=== PATIENT | male | born 1955 | race Two or more races ===

== ENCOUNTER 2016-05-28 04:56 | Inpatient (IN) | payer MEDICAID, OTHER ==
--- NOTE | 2016-05-28 05:03 | EDPHY ---
H & P Stated Complaint: stomach pain HPI/ROS: HPI CHIEF COMPLAINT: Abdominal pain HISTORY OF PRESENT ILLNESS: This patient very pleasant 60-year-old male significant past medical history for incarcerated hernia, diverticulitis, ileostomy and ileostomy takedown, appropriate multiple times by Dr. Hernandez, who presents emergency room with diffuse abdominal pain crampy in nature. Patient tells me that he had watermelon last night around 10:00 p.m. he started developing diffuse abdominal pain he has not had a fever. He tells me that he did have Nausea 1 episode of dry heaving no active vomiting. Today the pain has been persisting all night decided to come to the emergency room for evaluation. Tells me is tender all over his abdomen but more so in the lower abdomen. Patient has some me that in our half ago he did have a bowel movement however his discomfort in his abdomen did not improve. This patient is Swazi-speaking only. Almaz TOWNSEND was used as engineering aid. Past Medical History: Diverticulitis Past Surgical History: Multiple abdominal surgeries including diverticulitis surgery, ileostomy, ileostomy reversal, incarcerated hernia Social History: denies daily use of drugs alcohol tobacco products Family History: Noncontributory ROS REVIEW OF SYSTEMS: A comprehensive 10 point review of systems is otherwise negative aside from elements mentioned in the history of present illness. Exam Constitutional triage nursing summary reviewed, vital signs reviewed, awake/ alert. Eyes normal conjunctivae and sclera, EOMI, PERRLA. HENT normal inspection, atraumatic, moist mucus membranes, no epistaxis, neck supple/ no meningismus, no raccoon eyes. Respiratory clear to auscultation bilaterally, normal breath sounds, no respiratory distress, no wheezing. Cardiovascular rate normal, regular rhythm, no murmur, no edema, distal pulses normal. Gastrointestinal soft rather large abdomen, no guarding or peritoneal signs however diffusely tender with worsening tenderness in lower abdomen, hypoactive bowel sounds, no distension, no pulsatile mass. Genitourinary no CVA tenderness. Musculoskeletal no midline vertebral tenderness, full range of motion, no calf swelling, no tenderness of extremities, no meningismus, good pulses, neurovascularly intact. Skin pink, warm, & dry, no rash, skin atraumatic. Neurologic awake, alert and oriented x 3, AAOx3, moves all 4 extremities equally, motor intact, sensory intact, CN II-XII intact, normal cerebellar, normal vision, normal speech. Psychiatric normal mood/affect. Heme/Lymph/Immune no lymphadenopathy. Differential diagnosis includes but is not limited to and in no particular order: ileus, Bowel obstruction, appendicitis, gallbladder disease, diverticulitis, colitis, enteritis, perforated viscus, gastritis, GERD, esophagitis, urinary tract infection, pyelonephritis, kidney stones Medical Decision Making: This patient had an IV established obtain blood work including lactic acid, patient received IV fluids, be made NPO, hydrated with normal saline, IV Dilaudid for pain control IV Zofran for nausea patient had a CT scan abdomen pelvis to rule out acute intra-abdominal pathology. Does have a history of hernia with multiple intra-abdominal surgeries most likely scar tissue will rule out bowel obstruction, hernia, acute intra-abdominal inflammation Re-evaluation: CT scan of the abdomen pelvis with IV contrast. The results of the study are this shows a small bowel obstruction this small-bowel obstruction is located in the right lower quadrant is slightly distal to the small bowel anastomosis suture sites transition point present. The study was read by Dr. Lynn I viewed the images myself on the PACS system. 0628: Spoke with Dr. Hernandez who will come and see and evaluate the patient. At this time this patient is hemodynamically stable no acute distress. I have updated him that he has an SBO. Patient be admitted to the medical- surgical service. I consulted Dr. Hernandez. Source: Patient - Personal History Current Tetanus/Diphtheria Vaccine: Unsure - Medical/Surgical History Hx Asthma: No Hx Chronic Respiratory Disease: No Hx Diabetes: No Hx Cardiac Disease: No Hx Renal Disease: No Hx Cirrhosis: No Hx Alcoholism: No Hx HIV/AIDS: No Hx Splenectomy or Spleen Trauma: No Other PMH: PMHx: denies. PSHx: appy / diverticulitis. COLOSTOMY, colostomy reversal 2 wks ago - Social History Smoking Status: Former smoker Constitutional: Initial Vital Signs Temperature (C) 36.7 C 05/28/16 04:58 Heart Rate 90 05/28/16 04:58 Respiratory Rate 05/28/16 04:58 Blood Pressure 144/90 H 05/28/16 04:58 O2 Sat (%) 93 05/28/16 04:58 O2 Delivery Mode Nasal Cannula O2 (L/minute) 1.5 Allergies/Adverse Reactions: No Known Drug Allergies Allergy (Verified 09/16/14 10:23) Home Medications: Medication Instructions Recorded Ibuprofen [Motrin (*)] 200 mg PO PRN PRN 05/28/16 Medical Decision Making - Data Points Laboratory Results: Laboratory Results 05/29/16 04:23 05/29/16 04:23 Medications Given: Discontinued Medications Hydromorphone HCl (Dilaudid) 0.5 mg IVP EDNOW ONE Stop: 05/28/16 05:07 Last Admin: 05/28/16 05:15 Dose: 0.5 mg Hydromorphone HCl (Dilaudid) 0.5 mg IVP EDNOW ONE Stop: 05/28/16 07:02 Last Admin: 05/28/16 07:06 Dose: 0.5 mg Sodium Chloride (Ns) 1,000 mls @ 0 mls/hr IV ONCE ONE PRN Reason: Wide Open Stop: 05/28/16 05:07 Last Admin: 05/28/16 05:20 Dose: 1,000 mls Influenza Virus Vaccine Quadrival (Fluarix Quad [id number] Syringe) 0.5 ml IM .ONCE ONE Stop: 05/29/16 16:01 Last Admin: 05/29/16 16:04 Dose: 0.5 ml Ondansetron HCl (Zofran) 4 mg IVP EDNOW ONE Stop: 05/28/16 05:07 Last Admin: 05/28/16 05:21 Dose: 4 mg Departure - Departure Disposition: [facility] Inpatient Acute Clinical Impression: Small bowel obstruction Condition: Fair
[2016-05-28] MEDS ORDERED: HYDROmorphONE/DILAUDID 1 MG/ML SYR IVP ONE ×2 (05:06→07:01)
[2016-05-28] MEDS ORDERED: NS 1,000 ML IV ONE (05:06)
[2016-05-28] MEDS ORDERED: ONDANSETRON 4 MG/2 ML VIAL IVP ONE (05:06)
[2016-05-28 05:23] LABS: % IMMATURE GRANULYOCYTES 0.3 % (0.0-1.1); ABSOLUTE IMMATURE GRANULOCYTES 0.02 10^3/uL (0.00-0.10); ADD DIFF? NO; ADD MORPH? NO; ADD SCAN? NO; ATYPICAL LYMPHOCYTE FLAG 0 (0-99); FRAGMENT RBC FLAG 0 (0-99); HEMATOCRIT 46.1 % (40.0-51.0); HEMOGLOBIN 16.6 g/dL (13.7-17.5); LEFT SHIFT FLG 0 (0-99); LIPEMIA HEMOLYSIS FLAG 90 (0-99); MEAN CELL HEMOGLOBIN 35.5 pg (27.9-34.1); MEAN CELL VOLUME 98.5 fL (81.5-99.8); MEAN PLATELET VOLUME 10.6 fL (8.7-11.7); PLATELET CLUMPS FLAG 0 (0-99); PLATELET COUNT 109 10^3/uL (150-400); RED BLOOD CELL COUNT 4.68 10^6/uL (4.40-6.38); RED CELL DISTRIBUTION WIDTH 12.9 % (11.5-15.2)
[2016-05-28 05:37] LABS: ALANINE AMINOTRANSFERASE 107 IU/L (21-72); ALKALINE PHOSPHATASE 216 IU/L (38-126); ANION GAP 10 mEq/L (8-16); ASPARTATE AMINOTRANSFERASE 112 IU/L (17-59); BILIRUBIN,TOTAL 1.6 mg/dL (0.1-1.4); BILIRUBIN-CONJUGATED 0.5 mg/dL (0.0-0.5); BILIRUBIN-UNCONJUGATED 1.1 mg/dL (0.0-1.1); CALCIUM 9.1 mg/dL (8.5-10.4); CARBON DIOXIDE 24 mEq/l (22-31); CHLORIDE 107 mEq/L (97-110); CREATININE 0.6 mg/dL (0.7-1.3); GLOMERULAR FILTRATION RATE > 60; GLUCOSE 122 mg/dL (70-100); POTASSIUM 4.1 mEq/L (3.5-5.2); SODIUM 141 mEq/L (134-144); TOTAL PROTEIN 8.4 g/dL (6.3-8.2)
[2016-05-28] MEDS ORDERED: IOPAMIDOL (ISOVUE-300) 50 ML VIAL IV ONE (05:38)
[2016-05-28 05:40] LABS: INR 1.1 (0.83-1.16); PROTIME(PATIENT) 14.1 SEC (12.0-15.0)
[2016-05-28 05:41] LABS: APTT 33.9 SEC (23.0-38.0)
[2016-05-28] MEDS ORDERED: PROMETHAZINE HCL 25 MG/ML VIAL IVP PRN (06:31)
[2016-05-28] MEDS ORDERED: CEPACOL LOZENGE PO PRN (06:38)
[2016-05-28] MEDS: D5W 1/2 NS W/ 20 KCl/L 1,000 ML IV SCH ×2 (07:59→17:38)
[2016-05-28] MEDS: ONDANSETRON 4 MG/2 ML VIAL IVP PRN ×3 (08:09→19:33)
--- NOTE | 2016-05-28 09:12 | US ---
Right Upper Quadrant Sonogram May 28, 2016 Indication: 60-year-old man with abdominal pain, nausea, vomiting, and elevated LFTs. Comparison: CT abdomen and pelvis performed earlier today. Findings: The study is limited by large body habitus and gaseous bowel pattern partially obscuring th e intra-abdominal anatomy. The normal size liver, measuring 16.9 cm in the midaxillary line, has minimal increased echogenicity and heterogeneous echotexture. No sonographic mass or biliary dilation. The liver capsule has mild sc alloping. The gallbladder contains internal echoes which likely represent viscous bile and sludge. No shadowing gallstones. No sonographic Avendaño sign or pericholecystic fluid. The common bile duct is largely obs cured by bowel gas. The limited visualized segment has normal caliber (2 to 3 mm). Portal vein is patent. The abdominal aorta is normal caliber. The right kidney is unremarkable. No hydronephrosis. The right kidney measures 12.1 cm in length x 5. 5 x 5.8 cm axially. Cortical thickness: 1.2 cm. No free fluid. Majority of the pancreas is obscured by bowel gas. Impression: 1. Gallbladder sludge. No cholelithiasis or evidence of biliary obstruction. 2. Suspect underlying chronic liver disease. 3. No ascites.
--- NOTE | 2016-05-28 10:04 | GHP ---
[f rep st] HISTORY AND PHYSICAL DATE OF ADMISSION: 05/28/2016 CHIEF COMPLAINT: Abdominal pain. HISTORY OF PRESENT ILLNESS: The patient is a 60-year-old man who originally had a colovesicular fist john. He had an ileostomy and subsequently ileostomy take down. He then developed a small bowel obst ruction, and this was repaired. He had been doing well since September of 2014 but then had vague abdomina l pain and 1 episode of emesis. He is still passing gas and having bowel movements. He has been eat ing. PAST MEDICAL HISTORY: Diverticulitis. PAST SURGICAL HISTORY: As above. MEDICATIONS: None. He did take baking soda around midnight. 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 He denies tobacco, alcohol or drug use. FAMILY HISTORY: Unchanged. REVIEW OF SYSTEMS: 10-point review of systems negative except per HPI. PHYSICAL EXAMINATION: GENERAL: Well-developed, well-nourished man lying in bed. HEENT: Normocepha lic. No gross hearing deficits. Mucous membranes moist. Pupils equal and round. No scleral icteru s. LUNGS: Clear to auscultation bilaterally. No increased work of breathing. CARDIAC: Regular ra te. No peripheral edema. ABDOMEN: Mildly tender to deep palpation. Bowel sounds are present. He is soft he is tender over the ileostomy takedown site. SKIN: Normal nails. Warm and dry. PSYCH: Mood and affect normal. RESULTS REVIEWED: I personally reviewed the results of his CT scan, and there is possibly a mild par tial small bowel obstruction. His laboratory work reveals a normal white blood cell count. His chem istry panel is normal, but his LFTs are slightly elevated, which is different. His total bilirubin i s 1.6 and conjugated is 0.5. His lipase is 181. IMPRESSION AND PLAN: The patient is a 60-year-old with abdominal pain. I have ordered a right upper quadrant ultrasound which showed sludge without any pericholecystic fluid or biliary ductal dilatati on. His CT scan shows possible obstruction distal to the anastomosis; however, he is passing flatus and having bowel movements. We will admit him, keep him n.p.o., hydrate and look at labs in the morn ing. I will hold off on NG at this time since he is passing flatus and having bowel movements. It i s also possible he could have a viral gastroenteritis. /[id number]/MODL
[2016-05-28 15:02] LABS: COLOR YELLOW; LEUKOCYTE ESTERASE,URINE NEGATIVE (NEGATIVE); NITRITE,URINE NEGATIVE (NEGATIVE)
--- NOTE | 2016-05-28 17:43 | CT ---
CT Scan of the Abdomen and Pelvis (With Contrast) 0609 hours History: Worsening lower abdominal pain. Previous history of diverticulitis, colostomy, and colost grady reversal with partial colon resection. Technique: Axial computed tomographic images of the abdomen and pelvis were obtained with the unevent ful intravenous administration of 98 mL Isovue-300 contrast. Images were reviewed in multiple planes. Dose reduction techniques were utilized. Comparison to prior CT study of September 04, 2014. CT Abdomen and Pelvis Findings: Bowel: There is mild to moderate distention of distal small bowel loops within the lower abdomen and mid to upper pelvis. Bowel anastomotic sutures are seen involving distal small bowel in the right upp er iliac fossa. Just distal to this anastomosis there is point of transition between dilated and deco mpressed small bowel about 10 cm proximal to the terminal ileum. The remaining small bowel loops are normal in appearance. Lung bases: Normal. Liver: There is lobulated contour to the liver without evidence of focal mass. Rule out underlying ci rrhosis. Spleen: Normal. Gallbladder and Bile Ducts: The gallbladder is mildly distended. There is no evidence of calcified g allstone. The degree of distention is less than on the prior study. There is no evidence of biliary d uctal dilatation. Pancreas: Normal. Adrenals: Normal. Kidneys: No obstruction or solid masses. Abdominal Aorta: No aneurysm. Pelvic structures: The prostate is enlarged measuring 6.7 x 6.6 x 8.1 cm longitudinal, AP, and transv erse dimensions. There is moderate diffuse thickening of the bladder wall without focal abnormality. The bladder is decompressed. Appendix: Previous appendectomy. Skeletal system: Vertebral body heights are well-maintained. There are no significant lytic or scler otic osseous lesions. Degenerative disk disease is present from T12-L1 through L4-L5 with associated disk bulges and marginal calcifications contributing to spinal stenosis. Impression: 1. Mild to moderate partial SBO involving distal ileum about 10 cm proximal to the terminal ileum jus t distal to some bowel anastomotic sutures. 2. Lobulated contour to the liver suggestive of mild cirrhosis. 3. Enlarged prostate with thickened bladder wall probably from bladder outlet obstruction. 4. Degenerative disk disease involving the lumbar spine with associated marginal osteophytes and unde rlying spinal stenoses. The study was performed as an emergency on-call case and discussed by telephone with Dr. Zeferino chaidez at 0622 hrs. The final interpretation is concordant with the original communication.
[2016-05-29 05:53] LABS: % IMMATURE GRANULYOCYTES 0.2 % (0.0-1.1); ABSOLUTE IMMATURE GRANULOCYTES 0.01 10^3/uL (0.00-0.10); ADD DIFF? NO; ADD MORPH? NO; ADD SCAN? NO; ATYPICAL LYMPHOCYTE FLAG 10 (0-99); FRAGMENT RBC FLAG 0 (0-99); HEMATOCRIT 44.1 % (40.0-51.0); HEMOGLOBIN 15.1 g/dL (13.7-17.5); LEFT SHIFT FLG 20 (0-99); LIPEMIA HEMOLYSIS FLAG 90 (0-99); MEAN CELL HEMOGLOBIN 34.7 pg (27.9-34.1); MEAN CELL HEMOGLOBIN CONCENTR. 34.2 g/dL (32.4-36.7); MEAN CELL VOLUME 101.4 fL (81.5-99.8); MEAN PLATELET VOLUME 11.3 fL (8.7-11.7); PLATELET CLUMPS FLAG 0 (0-99); PLATELET COUNT 97 10^3/uL (150-400); RED BLOOD CELL COUNT 4.35 10^6/uL (4.40-6.38); RED CELL DISTRIBUTION WIDTH 12.8 % (11.5-15.2)
[2016-05-29 06:18] LABS: ALANINE AMINOTRANSFERASE 83 IU/L (21-72); ALBUMIN 3.2 g/dL (3.5-5.0); ALKALINE PHOSPHATASE 144 IU/L (38-126); ANION GAP 11 mEq/L (8-16); ASPARTATE AMINOTRANSFERASE 81 IU/L (17-59); BILIRUBIN,TOTAL 1.4 mg/dL (0.1-1.4); BILIRUBIN-CONJUGATED 0.3 mg/dL (0.0-0.5); BILIRUBIN-UNCONJUGATED 1.1 mg/dL (0.0-1.1); CALCIUM 8.2 mg/dL (8.5-10.4); CARBON DIOXIDE 23 mEq/l (22-31); CHLORIDE 107 mEq/L (97-110); CREATININE 0.6 mg/dL (0.7-1.3); GLOMERULAR FILTRATION RATE > 60; GLUCOSE 84 mg/dL (70-100); SODIUM 141 mEq/L (134-144); TOTAL PROTEIN 7.2 g/dL (6.3-8.2)
[2016-05-29] MEDS: D5W 1/2 NS W/ 20 KCl/L 1,000 ML IV SCH ×2 (07:25→18:09)
[2016-05-29] MEDS ORDERED: HYDROmorphONE/DILAUDID 1 MG/ML SYR IVP PRN (07:51)
[2016-05-29] MEDS: ONDANSETRON 4 MG/2 ML VIAL IVP PRN (08:15)
--- NOTE | 2016-05-29 08:46 | DX ---
Two-view abdomen series 0818 hours. History: Vomiting. Evaluate for obstruction. Findings: Comparison to CT study of May 28, 2016. Mildly dilated loops of small bowel are seen within the midabdomen with air-fluid levels compatible w ith persistent mild SBO. There is gas present within large bowel loops. Surgical clips are noted with in the abdomen and pelvis. There are no abnormal calcifications. Degenerative changes are noted assoc iated with the lumbar spine along with sclerosis inferior right SI joint. Impression: 1. Mild dilatation of small bowel loops midabdomen compatible with mild partial SBO, probably stable.
--- NOTE | 2016-05-29 09:24 | SOAPPROG ---
SOAP Progress Note Assessment/Plan: Assessment: HD # 2 for abdominal pain Small amount of emesis yesterday AXR stable Reports ate 1lb melon on Monday Keep NPO S: Pain is a 4 Plan: 05/29/16 09:23 Objective: Vital Signs Temp Pulse Resp BP Pulse Ox 36.6 C 66 18 128/66 H 94 05/29/16 08:10 05/29/16 08:10 05/29/16 08:10 05/29/16 08:10 05/29/16 08:10 Laboratory Results 05/29/16 04:23 05/29/16 04:23 05/28/16 05/29/16 05/30/16 05:59 05:59 05:59 Intake Total 2000 Output Total 400 200 Balance 1600 -200 PT 14.1 SEC (12.0-15.0) 05/28/16 04:30 INR 1.10 (0.83-1.16) 05/28/16 04:30 Physical Exam - Physical Exam General Appearance: WD/WN, alert, no apparent distress EENT: normal ENT inspection Neck: full range of motion Respiratory: chest non-tender, lungs clear, normal breath sounds Cardiac/Chest: regular rate, rhythm, No edema Abdomen: normal bowel sounds, non-tender (mild tender to deep palpation in B lower quadrants), soft Male Genitalia: deferred Skin: warm/dry ICD10 Worksheet Patient Problems: Problems Problem Status Diagnosed Small bowel obstruction Acute Diverticular disease of both small and large intestine with perforation and abscess Acute
[2016-05-29] MEDS ORDERED: FLU VACC QS 2016-17(3-64YR)/PF 0.5 ML SYR (FLUARIX QUAD) IM ONE ×2 (10:12→16:00)
[2016-05-29] MEDS: KETOROLAC 15 MG/1 ML SDV IVP SCH ×3 (13:12→23:26)
[2016-05-30] MEDS: D5W 1/2 NS W/ 20 KCl/L 1,000 ML IV SCH ×2 (04:43→16:36)
[2016-05-30] MEDS: KETOROLAC 15 MG/1 ML SDV IVP SCH ×4 (06:04→23:39)
--- NOTE | 2016-05-30 09:30 | SOAPPROG ---
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 Still with abdominal pain but improved. Reports passing flatus and BM x 3 this morning Advance to clear liquids. S: reports pain is a 4 now, but improving. passing flatus. no nausea, no vomiting. O: laying in bed, comfortable, NAD CTAB, no increased wob RRR +BS throughout, distended but soft, mild ttp periumbilical and lower quadrants Objective: Vital Signs Temp Pulse Resp BP Pulse Ox 36.7 C 57 L 14 111/69 94 05/30/16 07:49 05/30/16 07:49 05/30/16 07:49 05/30/16 07:49 05/30/16 07:49 05/29/16 05/30/16 05/31/16 05:59 05:59 05:59 Intake Total 1200 Output Total 100 Balance 1100 PT 14.1 SEC (12.0-15.0) 05/28/16 04:30 INR 1.10 (0.83-1.16) 05/28/16 04:30 ICD10 Worksheet Patient Problems: Problems Problem Status Diagnosed Small bowel obstruction Acute Diverticular disease of both small and large intestine with perforation and abscess Acute
[2016-05-30] MEDS: SENNOSIDES/DOCUSATE SODIUM TAB PO SCH (20:15)
[2016-05-31] MEDS: D5W 1/2 NS W/ 20 KCl/L 1,000 ML IV SCH (02:52)
[2016-05-31] MEDS: KETOROLAC 15 MG/1 ML SDV IVP SCH (05:06)
[2016-05-31 08:05] VITALS: BP 131/60; PULSE 59; RESP 16; TEMP 98.1; O2SAT 95
--- NOTE | 2016-05-31 08:26 | SOAPPROG ---
SOAP Progress Note Assessment/Plan: Assessment: 60yo M with history of colovesicular fistula admitted with abdominal pain, HD #4 No nausea, no vomiting. Abdominal pain improved + flatus and BM Tolerating clear liquids - advance to regular diet Seen with Dr. Hernandez D/c home today. follow-up at [facility]. follow-up with dr. Hernandez PRN. low fiber diet x 2 weeks S: feeling better. passing flatus. no nausea, no vomiting. O: laying in bed, comfortable, NAD no increased wob +BS throughout, nondistended, soft, nontender Objective: Vital Signs Temp Pulse Resp BP Pulse Ox 36.7 C 59 L 16 131/60 H 95 05/31/16 08:00 05/31/16 08:00 05/31/16 08:00 05/31/16 08:00 05/31/16 08:00 05/30/16 05/31/16 06/01/16 05:59 05:59 05:59 Intake Total 1200 3200 Output Total 100 Balance 1100 3200 PT 14.1 SEC (12.0-15.0) 05/28/16 04:30 INR 1.10 (0.83-1.16) 05/28/16 04:30 ICD10 Worksheet Patient Problems: Problems Problem Status Diagnosed Small bowel obstruction Acute Diverticular disease of both small and large intestine with perforation and abscess Acute
[2016-05-31] MEDS: SENNOSIDES/DOCUSATE SODIUM TAB PO SCH (09:17)
== END 2016-05-31 12:10 | disposition home or self-care (01) | DRG 390 ==
LOC: INTOOBSV 06:29 → F3E 07:29 → OBSVTOIN 05-29 09:23
PROVIDERS: ADMIT Surgery; ATTEND Surgery
DX: K56.60 Unspecified intestinal obstruction (principal); Z23 Encounter for immunization; Z87.891 Personal history of nicotine dependence
CPT/HCPCS: 96374; G0008; G0378; J1170; J1885; J2405; Q9967

== ENCOUNTER 2016-06-10 14:56 | Emergency (ER) | payer MEDICAID ==
[2016-06-10] MEDS ORDERED: IBUPROFEN 600 MG TAB PO ONE (15:06)
--- NOTE | 2016-06-10 15:07 | EDPHY ---
H & P Stated Complaint: fell off 2 ft ladder /injured r shoulder and arm Time Seen by Provider: 06/10/16 15:06 - Personal History Current Tetanus/Diphtheria Vaccine: Yes - Medical/Surgical History Hx Asthma: No Hx Chronic Respiratory Disease: No Hx Diabetes: No Hx Cardiac Disease: No Hx Renal Disease: No Hx Cirrhosis: No Hx Alcoholism: No Hx HIV/AIDS: No Hx Splenectomy or Spleen Trauma: No Other PMH: PMHx: denies. PSHx: appy / diverticulitis. COLOSTOMY, colostomy reversal 2 wks ago - Social History Smoking Status: Former smoker Constitutional: Initial Vital Signs Temperature (C) 36.6 C 06/10/16 14:58 Heart Rate 59 L 06/10/16 14:58 Respiratory Rate 16 06/10/16 14:58 Blood Pressure 153/77 H 06/10/16 14:58 O2 Sat (%) 95 06/10/16 14:58 O2 Delivery Mode [Post Non-Rebreather Mask Procedure 1st] O2 Delivery Mode [Procedural Non-Rebreather Mask 1st] O2 Delivery Mode [.Immediate Non-Rebreather Mask Pre-Procedure Procedural 1st] O2 Delivery Mode Room Air O2 (L/minute) [Post Procedure 10 1st] O2 (L/minute) [Procedural 1st] 10 Allergies/Adverse Reactions: No Known Drug Allergies Allergy (Verified 06/10/16 14:58) Home Medications: Medication Instructions Recorded Ibuprofen [Motrin (*)] 200 mg PO PRN PRN 05/28/16 HYDROcodone/APAP 10/325 [[place] 1 - 2 each PO Q4-6PRN PRN #20 tab 06/10/16 10/325] Medical Decision Making ED Course/Re-evaluation: CHIEF COMPLAINT: Right shoulder pain HISTORY OF PRESENT ILLNESS: The patient is a Niuean-speaking 60 y/o male arriving with his friend complaining of right shoulder pain secondary to a fall while painting 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 He fell off a 2ft ladder directly onto his right shoulder and had immediate pain in the shoulder. He denies weakness or paresthesias or other injuries. His hand, wrist, and forearm were uninjured. He denies pertinent medical history. His friend at bedside translated for me. REVIEW OF SYSTEMS: A 10 point review of systems was performed and is negative with the exception of the elements mentioned in the history of present illness. PHYSICAL EXAM: HR, BP, O2 Sat, RR. Temp noted General Appearance: Alert, well hydrated, obese. appropriate, and non-toxic appearing. Head: Atraumatic without scalp tenderness or obvious injury Eyes: Pupils equal, round, reactive to light and accommodation, EOMI, no trauma , no injection. Ears: Clear bilaterally, no perforation, normal landmarks Nose: Atraumatic, no rhinorrhea, clear. Throat: There is no erythema or exudates, no lesions, normal tonsils, mucus membranes moist. Neck: Supple, 2+ carotid upstroke, nontender, no lymphadenopathy. Respiratory: No retractions, no distress, no wheezes, and no accessory muscle use. Lungs are clear to auscultation bilaterally. Cardiovascular: Regular rate and rhythm, no murmurs, rubs, or gallops. Bilateral carotid, radial, dorsalis pedis, and posterior tibial pulses intact. Good capillary refill all extremities. Gastrointestinal: Abdomen is soft, nontender, non-distended, no masses, no rebound, no guarding, no peritoneal signs. Musculoskeletal: Right shoulder tenderness and pain with ROM, likely dislocated. Otherwise normal active ROM of all extremities, atraumatic. Neurological: Alert, appropriate, and interactive. The patient has normal DTRs and non-focal cranial nerves, motor, sensory, and cerebellar exam. Skin: No rashes, good turgor, no nodules on palpation. Past medical history: Bowel obstruction, unclear if he received surgery Past surgical history: noncontributory Family history: noncontributory Social history: Niuean-speaking DIAGNOSTICS/PROCEDURES/CRITICAL CARE TIME: Study: Right shoulder x-ray Indication: Pain, trauma Results: Shoulder x-ray was obtained. The results of the study are anterior- inferior dislocation. Radiologist report pending. I viewed the images myself on the PACS system. Procedure: Conscious sedation. Indication: Shoulder reduction The patient is an appropriate candidate to tolerate procedural sedation. The patient's vitals signs and mental status are appropriate. The risks, benefits and alternatives of the sedation were discussed with the patient. The patient is ASA classification 2. The patient's Mallampati airway score was 2 and the patient did meet the 3-3-2 airway measurements. A time out was completed. The patient was sedated with 1mg IV Dilaudid and 100mg IV propofol. The patient was monitored with continuous pulse oximetry, awake overnight monitor and end tidal CO2. There were no complications and no significant hypoxemia. I performed both the sedation and the procedure. The total time I spent at the bedside during the procedural sedation was 15 minutes. The patient was examined after the procedural sedation and has returned to their pre-sedation baseline with normal vital signs and a normal examination. Procedure: Reduction of dislocated shoulder Time-out completed immediately before the procedure. IV established. O2 administered. Placed on pulse oximeter and [id number]. Neurovascular exam intact pre-procedure. Given 1mg IV Dilaudid for pain and 100mg IV Propofol for sedation. The right shoulder was reduced using traction-countertraction.] Reassessed post-procedure. Neurovascular status intact- normal median, radial, ulnar and axillary nerve motor and sensory exam. Exam indicated reduction. Confirmed reduction on X-ray. Arm sling applied. The procedure was performed by myself, Dr. Bond Study: Right shoulder x-ray Indication: post reduction Results: Shoulder x-ray was obtained. The results of the study are appropriate reduction. Radiologist report pending. I viewed the images myself on the PACS system. DIFFERENTIAL DIAGNOSIS: The differential diagnosis for the patient's trauma included but was not limited to shoulder dislocation, humerus fracture, clavicle fracture, pneumothorax, fractured ribs, intracranial injury, long bone and pelvic bone fractures, spinal injury, intra-abdominal injury, and intra- thoracic injury. MEDICAL DECISION MAKING: This is a 60 y/o male presenting with right shoulder pain and likely dislocation following a 2-foot fall this afternoon while painting. He has no other visible injuries from the fall. He is neurovascularly intact on exam. ROM of right shoulder limited by pain. Plan for pain control and x-ray imaging. 2 tabs PO Percocet administered. X-ray confirms anteriorly dislocated right shoulder. Plan for conscious sedation and reduction. I discussed this with the patient via nursing tech and answered all his questions. IV established. Shoulder successfully reduced as confirmed by x-ray. Patient tolerated procedure well. He will be discharged with customary shoulder dislocation care instructions and script for [place]. He's been referred to ortho for follow up. These instructions were clearly conveyed to him via nursing tech. Patient agrees to follow up plan. - Data Points Medications Given: Discontinued Medications Hydromorphone HCl (Dilaudid) 1 mg IVP EDNOW ONE Stop: 06/10/16 15:51 Last Admin: 06/10/16 15:50 Dose: 1 mg Ibuprofen (Motrin) 600 mg PO EDNOW ONE Stop: 06/10/16 15:07 Last Admin: 06/10/16 15:13 Dose: 600 mg Oxycodone/Acetaminophen (Percocet 5/325) 2 tab PO EDNOW ONE Stop: 06/10/16 15:10 Last Admin: 06/10/16 15:13 Dose: 2 tab Propofol (Diprivan) 100 mg IVP EDNOW ONE Stop: 06/10/16 15:53 Last Admin: 06/10/16 16:09 Dose: 100 mg Departure - Departure Disposition: Home, Routine, Self-Care Clinical Impression: Dislocation of shoulder, right, closed Condition: Good Instructions: Shoulder Dislocation (ED) Additional Instructions: 1. Rest. Apply ice to sore areas. Use 600mg ibuprofen 3 times daily for the next 2-3 days. 2. Use [place] as prescribed when needed for pain. 3. Keep arm in sling until follow up. 4. Follow up with Dr. Marrero, orthopedic surgeon, next week. 5. Return to the ED for severe pain, inability to use your hand, or numbness in your hand. Referrals: Tereso Marrero MD [Medical Doctor] - As per Instructions Prescriptions: HYDROcodone/APAP 10/325 [[place] 10/325] 1 - 2 each PO Q4-6PRN PRN #20 tab PRN Reason: Pain, Moderate Print Language: Niuean Report Scribed for: Brad Bond Report Scribed by: Asmita Smalls Date of Report: 06/10/16 Time of Report: 15:45
[2016-06-10] MEDS ORDERED: OXYCODONE/APAP 5/325 TAB PO ONE (15:09)
[2016-06-10] MEDS ORDERED: OXYCODONE/APAP 5/325 TAB ONE (15:10)
--- NOTE | 2016-06-10 15:34 | DX ---
Right Shoulder, Two Views. HISTORY: Pain after fall. FINDINGS: There is anterior dislocation of the right humerus at the anterior inferior aspect of the r ight glenoid. Acromioclavicular joint demonstrates mild degenerative change. No other significant oss eous abnormality. IMPRESSION: Anterior dislocation of the right glenohumeral joint.
[2016-06-10] MEDS ORDERED: PROPOFOL 200 MG/20 ML VIAL ONE (15:41)
[2016-06-10] MEDS ORDERED: NS 1,000 ML IV ONE (15:50)
[2016-06-10] MEDS ORDERED: HYDROmorphONE/DILAUDID 1 MG/ML SYR IVP ONE (15:50)
[2016-06-10] MEDS ORDERED: HYDROmorphONE/DILAUDID 1 MG/ML SYR ONE (15:50)
[2016-06-10] MEDS ORDERED: PROPOFOL 200 MG/20 ML VIAL IVP ONE (15:52)
--- NOTE | 2016-06-10 16:37 | DX ---
Right Shoulder, Two Views. HISTORY: Shoulder pain. Postreduction evaluation. COMPARISON: X-ray performed earlier today. FINDINGS: There has been reduction of the prior visualized anterior dislocation of the right glenohum eral joint. Definite fracture is not visualized. Mild degenerative change is seen in the acromioclavi cular joint. IMPRESSION: Reduction of the prior visualized anterior dislocation at the glenohumeral joint.
[2016-06-10 17:28] VITALS: RESP 18
[2016-06-10 17:32] VITALS: BP 180/91; PULSE 74; TEMP 97.7; O2SAT 93
== END 2016-06-10 17:34 | disposition home or self-care (01) ==
DX: S43.004A Unspecified dislocation of right shoulder joint, initial encounter (principal); Z87.891 Personal history of nicotine dependence; W11.XXXA Fall on and from ladder, initial encounter; Y92.009 Unspecified place in unspecified non-institutional (private) residence as the place of occurrence of the external cause; Y99.8 Other external cause status; Y93.89 Activity, other specified
CPT/HCPCS: 96374; J1170; J2704; L3980

== ENCOUNTER 2016-06-22 18:25 | Emergency (ER) | payer MEDICAID, OTHER ==
--- NOTE | 2016-06-22 22:19 | EDPHY ---
H & P Time Seen by Provider: 06/22/16 21:48 HPI/ROS: CHIEF COMPLAINT: right shoulder pain HISTORY OF PRESENT ILLNESS: 60-year-old male presents to the emergency department complaining of right shoulder pain the increased today several hours prior to arrival while driving. Patient was seen in the emergency department 11 days ago after he fell off a ladder. He had a shoulder dislocation it was reduced with sedation. Patient saw Dr. Marrero 2 days ago. He gave him gentle [id number] exercises to do and told him to follow up in 2 weeks in the office at that time he will start him with physical therapy. Patient denies new trauma, he reports the pain radiates down his biceps. He describes as a burning sensation. He denies neck pain, no neck elbow pain or wrist pain. No numbness or tingling in his hand. No chest pain or shortness of breath. Smoking Status: Former smoker Physical Exam: GEN: Awake, alert, oriented, no acute distress RESP: nl resp effort MSK: Right shoulder with no tenderness to palpation, range of motion not tested. Patient able to shrug shoulder without difficulty, no deformity, full range of motion of right elbow and right wrist, 2+ radial pulses, sensation intact to light touch SKIN: Ecchymosis to right upper arm Constitutional: Initial Vital Signs Temperature (C) 36.6 C 06/22/16 18:50 Heart Rate 63 06/22/16 18:50 Respiratory Rate 18 06/22/16 18:50 Blood Pressure 125/80 H 06/22/16 18:50 O2 Sat (%) 97 06/22/16 18:50 O2 Delivery Mode Room Air Allergies/Adverse Reactions: No Known Drug Allergies Allergy (Verified 06/22/16 18:57) Home Medications: Medication Instructions Recorded Ibuprofen [Motrin (*)] 200 mg PO PRN PRN 05/28/16 HYDROcodone/APAP 10/325 [[place] 1 - 2 each PO Q4-6PRN PRN #20 tab 06/10/16 10/325] Hydrocodone/APAP 5/325 [[place] 1 tab PO Q4H PRN #14 tab 06/22/16 5/325] MDM/Departure - MDM ED Course/Re-evaluation: The patient had no new trauma to his right arm, I did not order an x-ray, he has no deformity and I do not think his shoulder is dislocated. He has rotator cuff tendinitis pain that radiates down his deltoid. I recommended ice, ibuprofen and [place]. He has a follow-up appointment scheduled already with his orthopedist. He is given return precautions for pain that is not controlled, any new symptoms or concerns. Any neurovascular compromise. - Depart Disposition: Home, Routine, Self-Care Clinical Impression: Sprain of right shoulder Qualifiers: Encounter type: initial encounter Shoulder sprain type: unspecified sprain Qualifier Code: (S43.401A) Unspecified sprain of right shoulder joint, initial encounter Condition: Good Instructions: Hydrocodone/Acetaminophen (By mouth), Shoulder Sprain (ED) Additional Instructions: Rest, ice, take 600 mg of ibuprofen every 8 hours with food, take 1-2 [place] every 4-6 hours as needed for severe pain. Follow-up with Dr. Marrero as scheduled. Return to the emergency department for any questions or concerns. julieth Stout, tome 600 mg de ibuprofeno cada 8 horas con comida, tome 1-2 Jefferson cada 4-6 horas a linnea lo necesite para el dolor. Acuda a aguilera josué con el Dr. Marrero. Regrese a la ehsan de emergencia si tiene preguntas o preocupaciones. Prescriptions: Hydrocodone/APAP 5/325 [[place] 5/325] 1 tab PO Q4H PRN #14 tab PRN Reason: Pain, Moderate Referrals: Tereso Marrero MD [Medical Doctor] - As per Instructions Print Language: Syriac
[2016-06-22] MEDS ORDERED: HYDROCOD/APAP 5/325 PREPACK#6 BTL TAKEHOME ONE ×2 (22:28→23:05)
[2016-06-22] MEDS ORDERED: ONDANSETRON 4MG PREPACK#2 BTL TAKEHOME ONE ×2 (22:42→23:05)
[2016-06-22] MEDS ORDERED: ONDANSETRON DISINTEGRATING 4 MG TAB ONE (22:44)
[2016-06-22 23:04] VITALS: BP 144/86; PULSE 82; RESP 17; TEMP 98.6; O2SAT 95
== END 2016-06-22 23:05 | disposition home or self-care (01) ==
DX: S43.401D Unspecified sprain of right shoulder joint, subsequent encounter (principal); Z87.891 Personal history of nicotine dependence; W11.XXXD Fall on and from ladder, subsequent encounter

== ENCOUNTER → 2016-06-29 | Outpatient (CLI) | payer OTHER ==
--- NOTE | 2016-06-29 18:08 | DX ---
Right Shoulder , 3 Views History: Pain post trauma. History of dislocation. 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 Follow-up. Comparison: June 10, 2016 Findings: The humeral head is well rounded and normally located, however the glenohumeral joint newly looks wide raising the possibility of trapped soft tissue within the shoulder joint. No fracture is identified. The AC joint is normally aligned but associated with degenerative change. Impression: No fracture. Wide glenohumeral joint raises the possibility of trapped soft tissue. If cl inically indicated consider shoulder MRI.
== END ==
LOC: FIMAGING 13:00
PROVIDERS: ATTEND Physician Assistant
DX: S43.004A Unspecified dislocation of right shoulder joint, initial encounter (principal); W19.XXXA Unspecified fall, initial encounter; Y93.H9 Activity, other involving exterior property and land maintenance, building and construction

== ENCOUNTER → 2016-07-14 | Outpatient (CLI) | payer OTHER | LOC: FIMAGING 18:27 | PROVIDERS: ATTEND Physician Assistant | DX: S49.91XA Unspecified injury of right shoulder and upper arm, initial encounter (principal) ==

== ENCOUNTER → 2016-08-02 | Outpatient (CLI) | payer OTHER | LOC: FIMAGING 17:38 | DX: M75.121 Complete rotator cuff tear or rupture of right shoulder, not specified as traumatic (principal) ==

== ENCOUNTER 2016-12-31 23:56 | Inpatient (IN) | payer SELFPAY ==
--- NOTE | 2017-01-01 00:13 | EDPHY ---
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 HPI The patient presents with abdominal pains which have been present for the last 2 days, have been intermittent, are diffuse, getting progressively worse. He has had 3 episodes of nonbloody nonbilious emesis today. He has had 2 soft appearing stools. He has not had a fever. He has a history of a small-bowel obstruction in 2015 and had diverticulitis with abscess as well as ileostomy for colovesicular fistula. REVIEW OF SYSTEMS Constitutional: No fever, no chills. Eyes: No discharge. ENT: No sore throat. Cardiovascular: No chest pain, no palpitations. Respiratory: No cough, no shortness of breath. Gastrointestinal: See HPI Genitourinary: No hematuria. Musculoskeletal: No back pain. Skin: No rashes. Neurological: No headache. PMHx: Diverticulitis, history of colovesicular fistula status post ileostomy with takedown, history of small-bowel obstruction Soc Hx: Lives at home PHYSICAL General Appearance: Alert, no distress Eyes: Pupils equal and round no pallor or injection ENT, Mouth: Mucous membranes moist Respiratory: There are no retractions, lungs are clear to auscultation Cardiovascular: Regular rate and rhythm Gastrointestinal: Abdomen is soft with mild diffuse tenderness Neurological: A&O, moves all extremities Skin: Warm and dry, no rashes Musculoskeletal: Neck is supple non tender Extremities: symmetrical, full range of motion Psychiatric: Patient is oriented X 3, there is no agitation Source: Patient Exam Limitations: No limitations - Personal History Current Tetanus/Diphtheria Vaccine: Unsure - Medical/Surgical History Hx Asthma: No Hx Chronic Respiratory Disease: No Hx Diabetes: No Hx Cardiac Disease: No Hx Renal Disease: No Hx Cirrhosis: No Hx Alcoholism: No Hx HIV/AIDS: No Hx Splenectomy or Spleen Trauma: No Other PMH: PMHx: denies. PSHx: appy / diverticulitis. COLOSTOMY, colostomy reversal 2 wks ago - Social History Smoking Status: Former smoker Constitutional: Initial Vital Signs Temperature (C) 36.9 C 01/01/17 00:06 Heart Rate 83 01/01/17 00:06 Respiratory Rate 16 01/01/17 00:06 Blood Pressure 125/76 H 01/01/17 00:06 O2 Sat (%) 94 01/01/17 00:06 O2 Delivery Mode Room Air Allergies/Adverse Reactions: No Known Drug Allergies Allergy (Verified 06/22/16 18:57) Home Medications: Medication Instructions Recorded NK [No Known Home Meds] 01/01/17 Medical Decision Making - Diagnostics Imaging Results: CT abdomen pelvis with IV contrast demonstrates small bowel obstruction, discussed with Dr. Meza of Radiology. Imaging: Discussed imaging studies w/ salary manager Radiologist Differential Diagnosis: This is a 61-year-old male with history of SBO and colostomy with diverticulitis who presents from home with 2 days of progressive diffuse abdominal pain associated with vomiting. Differential diagnosis includes small bowel obstruction, partial small bowel obstruction, diverticulitis, gastroenteritis. In the emergency department, patient was given IV fluids and medication for pain and vomiting. Labs were checked and did reveal a transaminitis. CT scan demonstrates small bowel obstruction. I consulted with Dr. Hilliard of General surgery, who has taking care of the patient previously, given the diagnostic uncertainty due to recent bowel movements just 2 hours ago, she recommends admission to the hospitalist service. She saw the patient in the emergency department. I discussed the case with Dr. Rodgers of the hospitalist service who will admit the patient. - Data Points Laboratory Results: Laboratory Results 01/01/17 00:25 01/01/17 00:25 01/01/17 01/01/17 01/01/17 00:25 00:25 00:25 WBC RBC Hgb Hct MCV MCH MCHC RDW Plt Count MPV Neut % (Auto) Lymph % (Auto) [place] % (Auto) Eos % (Auto) Baso % (Auto) Nucleat RBC Rel Count Absolute Neuts (auto) Absolute Lymphs (auto) Absolute Monos (auto) Absolute Eos (auto) Absolute Basos (auto) Absolute Nucleated RBC Immature Gran % Immature Gran # PT 13.8 SEC SEC (12.0-15.0) INR 1.07 (0.83-1.16) APTT 33.7 SEC SEC (23.0-38.0) Sodium 139 mEq/L mEq/L (134-144) Potassium 3.7 mEq/L mEq/L (3.5-5.2) Chloride 106 mEq/L mEq/L (97-110) Carbon Dioxide 21 mEq/l L mEq/l (22-31) Anion Gap 12 mEq/L mEq/L (8-16) BUN 7 mg/dL mg/dL (7-23) Creatinine 0.6 mg/dL L mg/dL (0.7-1.3) Estimated GFR > 60 Glucose 122 mg/dL H mg/dL (70-100) Calcium 9.0 mg/dL mg/dL (8.5-10.4) Phosphorus 3.3 mg/dL mg/dL (2.5-4.5) Total Bilirubin 1.4 mg/dL mg/dL (0.1-1.4) Conjugated Bilirubin 0.5 mg/dL mg/dL (0.0-0.5) Unconjugated Bilirubin 0.9 mg/dL mg/dL (0.0-1.1) AST 105 IU/L H IU/L (17-59) ALT 88 IU/L H IU/L (21-72) Alkaline Phosphatase 187 IU/L H IU/L (38-126) Total Protein 8.2 g/dL g/dL (6.3-8.2) Albumin 4.0 g/dL g/dL (3.5-5.0) Lipase 137.0 IU/L IU/L (23-300) 01/01/17 00:25 WBC 6.24 10^3/uL 10^3/uL (3.80-9.50) RBC 4.59 10^6/uL 10^6/uL (4.40-6.38) Hgb 15.9 g/dL g/dL (13.7-17.5) Hct 46.1 % % (40.0-51.0) MCV 100.4 fL H fL (81.5-99.8) MCH 34.6 pg H pg (27.9-34.1) MCHC 34.5 g/dL g/dL (32.4-36.7) RDW 13.5 % % (11.5-15.2) Plt Count 100 10^3/uL L 10^3/uL (150-400) MPV 10.4 fL fL (8.7-11.7) Neut % (Auto) 66.8 % % (39.3-74.2) Lymph % (Auto) 20.7 % % (15.0-45.0) [place] % (Auto) 10.4 % % (4.5-13.0) Eos % (Auto) 1.3 % % (0.6-7.6) Baso % (Auto) 0.5 % % (0.3-1.7) Nucleat RBC Rel Count 0.0 % % (0.0-0.2) Absolute Neuts (auto) 4.17 10^3/uL 10^3/uL (1.70-6.50) Absolute Lymphs (auto) 1.29 10^3/uL 10^3/uL (1.00-3.00) Absolute Monos (auto) 0.65 10^3/uL 10^3/uL (0.30-0.80) Absolute Eos (auto) 0.08 10^3/uL 10^3/uL (0.03-0.40) Absolute Basos (auto) 0.03 10^3/uL 10^3/uL (0.02-0.10) Absolute Nucleated RBC 0.00 10^3/uL 10^3/uL (0-0.01) Immature Gran % 0.3 % % (0.0-1.1) Immature Gran # 0.02 10^3/uL 10^3/uL (0.00-0.10) PT INR APTT Sodium Potassium Chloride Carbon Dioxide Anion Gap BUN Creatinine Estimated GFR Glucose Calcium Phosphorus Total Bilirubin Conjugated Bilirubin Unconjugated Bilirubin AST ALT Alkaline Phosphatase Total Protein Albumin Lipase Medications Given: Ketorolac Tromethamine (Toradol) 15 mg IVP Q6HRS [facility] Stop: 01/06/17 05:59 Last Admin: 01/01/17 05:18 Dose: 15 mg Morphine Sulfate (Morphine) 2 mg IVP Q4HRS PRN PRN Reason: Pain, Severe Unable to Take PO Stop: 01/11/17 02:10 Last Admin: 01/01/17 04:31 Dose: 2 mg Discontinued Medications Sodium Chloride (Ns) 1,000 mls @ 0 mls/hr IV EDNOW ONE; Wide Open PRN Reason: Protocol Stop: 01/01/17 00:21 Last Admin: 01/01/17 00:32 Dose: 1,000 mls Sodium Chloride (Ns) 1,000 mls @ 0 mls/hr IV ONCE ONE; As Directed PRN Reason: Protocol Stop: 01/01/17 02:12 Last Admin: 01/01/17 03:53 Dose: 1,000 mls Ketorolac Tromethamine (Toradol) 15 mg IVP EDNOW ONE Stop: 01/01/17 00:21 Last Admin: 01/01/17 00:33 Dose: 15 mg Morphine Sulfate (Morphine) 4 mg IVP EDNOW ONE Stop: 01/01/17 01:33 Last Admin: 01/01/17 01:38 Dose: 4 mg Ondansetron HCl (Zofran) 4 mg IVP EDNOW ONE Stop: 01/01/17 00:21 Last Admin: 01/01/17 00:33 Dose: 4 mg Departure - Departure Disposition: [facility] Acute Clinical Impression: Abdominal pain Qualifiers: Abdominal location: generalized Qualified Code(s): R10.84 - Generalized abdominal pain Vomiting Qualifiers: Vomiting type: unspecified Vomiting Intractability: non-intractable Nausea presence: with nausea Qualified Code(s): R11.2 - Nausea with vomiting, unspecified Condition: Fair
[2017-01-01] MEDS ORDERED: KETOROLAC 30 MG/1 ML SDV IVP ONE (00:20)
[2017-01-01] MEDS ORDERED: NS 1,000 ML IV ONE ×2 (00:20→02:11)
[2017-01-01] MEDS ORDERED: ONDANSETRON 4 MG/2 ML VIAL IVP ONE (00:20)
[2017-01-01 00:42] LABS: % IMMATURE GRANULYOCYTES 0.3 % (0.0-1.1); ABSOLUTE IMMATURE GRANULOCYTES 0.02 10^3/uL (0.00-0.10); ADD DIFF? NO; ADD MORPH? NO; ADD SCAN? NO; ATYPICAL LYMPHOCYTE FLAG 0 (0-99); FRAGMENT RBC FLAG 0 (0-99); HEMATOCRIT 46.1 % (40.0-51.0); HEMOGLOBIN 15.9 g/dL (13.7-17.5); LEFT SHIFT FLG 0 (0-99); LIPEMIA HEMOLYSIS FLAG 90 (0-99); MEAN CELL HEMOGLOBIN 34.6 pg (27.9-34.1); MEAN CELL HEMOGLOBIN CONCENTR. 34.5 g/dL (32.4-36.7); MEAN CELL VOLUME 100.4 fL (81.5-99.8); MEAN PLATELET VOLUME 10.4 fL (8.7-11.7); PLATELET CLUMPS FLAG 0 (0-99); PLATELET COUNT 100 10^3/uL (150-400); RED BLOOD CELL COUNT 4.59 10^6/uL (4.40-6.38); RED CELL DISTRIBUTION WIDTH 13.5 % (11.5-15.2)
[2017-01-01 00:48] LABS: ALANINE AMINOTRANSFERASE 88 IU/L (21-72); ALKALINE PHOSPHATASE 187 IU/L (38-126); ANION GAP 12 mEq/L (8-16); ASPARTATE AMINOTRANSFERASE 105 IU/L (17-59); BILIRUBIN,TOTAL 1.4 mg/dL (0.1-1.4); BILIRUBIN-CONJUGATED 0.5 mg/dL (0.0-0.5); BILIRUBIN-UNCONJUGATED 0.9 mg/dL (0.0-1.1); CARBON DIOXIDE 21 mEq/l (22-31); CHLORIDE 106 mEq/L (97-110); CREATININE 0.6 mg/dL (0.7-1.3); GLOMERULAR FILTRATION RATE > 60; GLUCOSE 122 mg/dL (70-100); POTASSIUM 3.7 mEq/L (3.5-5.2); SODIUM 139 mEq/L (134-144); TOTAL PROTEIN 8.2 g/dL (6.3-8.2)
[2017-01-01] MEDS ORDERED: IOPAMIDOL (ISOVUE-300) 100 ML BTL ONE (00:55)
[2017-01-01] MEDS ORDERED: ACETAMINOPHEN 325 MG TAB PO PRN (02:10)
[2017-01-01] MEDS ORDERED: ONDANSETRON DISINTEGRATING 4 MG TAB PO PRN (02:10)
[2017-01-01] MEDS ORDERED: ONDANSETRON 4 MG/2 ML VIAL IVP PRN (02:10)
[2017-01-01 03:19] LABS: INR 1.07 (0.83-1.16); PROTIME(PATIENT) 13.8 SEC (12.0-15.0)
[2017-01-01 03:20] LABS: APTT 33.7 SEC (23.0-38.0)
--- NOTE | 2017-01-01 04:31 | GHP ---
[f rep st] HISTORY AND PHYSICAL DATE OF ADMISSION: 01/01/2017 CHIEF COMPLAINT: Nausea and abdominal pain. HPI: a 61-year-old Montserratian-speaking male with a history of multiple abdominal surgeries and prior SBO in May 2016, presenting with epigastric pain, nausea and vomiting. History obtained with phone nutrition assistant. He complains of abdominal pain since burning in nature in the epigastrum and RLQ. It is intermittent and worse after eating. Pain reaches 6/10 at times. Had 3 episodes of nonbloody, non-bilious emesis today. Last BM was today. Has noted some loose stools. Denies any fevers, chills or sweats. No ill contacts. Mild abdominal swelling over the last couple days. No lower extremity swelling. History of sigmoid diverticulitis with abscess in April 2014. Subsequently developed a colovesicular fistula warranting laparotomy with adhesion lysis, bladder repair, sigmoidectomy and diverting ileostomy. In August 2014 he had takedown of the ileostomy. On September 04, 2014 he had a repair of the enterotomy and primary hernia repair. In May 2016 he was hospitalized for small bowel obstruction and was managed conservatively with resolution of symptoms. REVIEW OF SYSTEMS: I completed a 10-point review of systems. PAST MEDICAL HISTORY: 1. Sigmoid diverticulitis with abscess in April 2014. 2. Colovesicular fistula warranting lysis of adhesion, bladder repair, sigmoidectomy and diverting ileostomy. 3. Incarcerated ventral hernia. 4. SBO in May 2016. PAST SURGICAL HISTORY: As noted in HPI. FAMILY HISTORY: Cousin with diabetes. Father with cirrhosis. 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 No tobacco or illicits. MEDICATIONS: None. ALLERGIES: None. PHYSICAL EXAM: VITAL SIGNS: Temperature afebrile, 36.9. Blood pressure 118/59 , heart rate in the 70s, respirations 16 and 94% on room air. GENERAL: Obese male in no acute distress. HEENT: PERRLA. EOMI. Oropharynx clear. CV: Regular rate and rhythm. No murmurs, gallops, rubs. LUNGS: Clear to auscultation bilaterally. ABDOMEN: Soft, mildly distended with mild epigastric and right lower quadrant tenderness to palpation. No rebound or guarding. Hyperactive bowel sounds throughout. MUSCULOSKELETAL: 5/5 upper and lower extremity strength. : No suprapubic tenderness. NEUROLOGIC: 2 through 12 intact. PSYCHIATRIC: Alert and oriented x3. LABS: WBC 6, hemoglobin 15, hematocrit 46, platelets 100. Coags pending. Sodium 139, potassium 3.7, chloride 106, carbon dioxide 21, creatinine 0.6, glucose 122, calcium 9, total bilirubin is 1.4. AST 105, up from 81. ALT is 88 , up from 83. Alkaline phosphatase 187, lipase 137, phos 3.3. CT scan showing recurrent small bowel obstruction right upper pelvis. ASSESSMENT AND PLAN: 1. Acute abdominal pain: differential includes gastroesophageal reflux disease , PUD vs. SBO. CT shows recurrent SBO of right upper pelvis, no abscess. Had emesis today, but is having bowel movements. ER physician discussed with Dr. Hernandez who said to admit to Medicine. Will treat conservatively at this time with n.p.o., IV fluids. Pain is improved with morphine. Electrolytes WNL. If symptoms did not improve may warrant an NG tube. 2. Abdominal distention: likely due to SBO. However, prior U/S in May 2016 showed early signs of chronic liver disease. Has e/o liver dysfunction with thrombocytopenia. Check coags and repeat ultrasound to eval for ascites. 3. Thrombocytopenia: Query underlying cirrhosis. Plan as above. 4. Transaminitis: This has been chronic since May. We will check an ultrasound. 5. Diet, n.p.o. IV fluids. 6. DVT, prophylaxis Lovenox. DISPOSITION: Patient warrants inpatient admission given acute abdominal pain, small bowel obstruction requiring IV fluids and bowel rest. /[id number]/MODL MTDD
[2017-01-01] MEDS ORDERED: KETOROLAC 15 MG/1 ML SDV IVP SCH (06:00)
--- NOTE | 2017-01-01 07:36 | GCON ---
[f rep st] CONSULTATION DATE OF CONSULTATION: 01/01/2017 CHIEF COMPLAINT: Possible small-bowel obstruction. HISTORY OF PRESENT ILLNESS: The patient is a 61-year-old man who initially had a colovesicular fistula that I performed sigmoid colectomy, repair of the bladder with diverting ileostomy and then subsequently took down his ileostomy. I last saw him in May of 2016. He presents to the ER with a 2-day history of eating chicharrones with meat. He has had 2 small episodes of emesis and upper epigastric pain. He last had a bowel movement approximately 2 hours ago which was a bit more soft than usual. He had a CT scan performed in the ER that I personally reviewed that showed some fluid-filled loops of small bowel, read as possible small bowel obstruction. PAST MEDICAL HISTORY: Diverticulitis. PAST SURGICAL HISTORY: As above. MEDICATIONS: None. 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 He denies tobacco, alcohol, illegal drug use. FAMILY HISTORY: Unchanged. REVIEW OF SYSTEMS: Ten-point review of systems negative except per HPI. PHYSICAL EXAMINATION: GENERAL: Well-developed, well-nourished man lying in bed. HEENT: Normocephalic. No gross hearing deficits. Mucous membranes moist. Pupils equal and round. No scleral icterus. LUNGS: Clear to auscultation bilaterally. No increased work of breathing. CARDIAC: Regular rate. No peripheral edema. ABDOMEN: Minimally tender to palpation. Bowel sounds are present. He is soft. SKIN: Normal nails, warm and dry. PSYCH: Mood and affect normal. NEURO: Grossly intact. LABORATORY WORK: Within normal limits with the exception of his elevated LFTs which are consistently elevated. IMPRESSION/PLAN: The patient is a 61-year-old man status post colovesicular fistula with repair and ileostomy takedown who presents with abdominal pain, 2 small episodes of emesis and soft stools, the last stool being even 2 hours ago. I did personally review his CAT scan and there are fluid loops of small bowel; however, they do not appear extremely distended. It is possibly he could have these symptoms in relation to something he recently ate or a virus versus a mechanical small-bowel obstruction. At any rate, he is not completely obstructed. I will continue to follow along. /[id number]/MODL MTDD
[2017-01-01] MEDS: FAMOTIDINE 20 MG/NACL 50 ML IV SCH ×2 (08:23→20:33)
[2017-01-01] MEDS: ENOXAPARIN 40 MG/0.4 ML SYR SC SCH (08:23)
[2017-01-01 09:42] LABS: ANION GAP 8 mEq/L (8-16); CALCIUM 7.9 mg/dL (8.5-10.4); CARBON DIOXIDE 22 mEq/l (22-31); CHLORIDE 110 mEq/L (97-110); CREATININE 0.5 mg/dL (0.7-1.3); GLOMERULAR FILTRATION RATE > 60; GLUCOSE 90 mg/dL (70-100); POTASSIUM 3.6 mEq/L (3.5-5.2); SODIUM 140 mEq/L (134-144)
--- NOTE | 2017-01-01 10:28 | SOAPPROG ---
SOAP Progress Note Assessment/Plan: Assessment: HD # 2 for abdominal pain and small emesis Jose feels better this am. Last BM was at midnight Will follow along, doubt sbo since having bowel movements and pain is improving S: He is eager to know results of ultrasound Plan: 01/01/17 10:25 Objective: Vital Signs Temp Pulse Resp BP Pulse Ox 36.8 C 71 18 143/80 H 94 01/01/17 03:15 01/01/17 03:15 01/01/17 03:15 01/01/17 03:15 01/01/17 03:15 Laboratory Results 01/01/17 09:12 12/31/16 01/01/17 01/02/17 05:59 05:59 05:59 Intake Total 1000 Balance 1000 PT 13.8 SEC (12.0-15.0) 01/01/17 00:25 INR 1.07 (0.83-1.16) 01/01/17 00:25 Physical Exam - Physical Exam General Appearance: WD/WN, alert, no apparent distress EENT: PERRL/EOMI, normal ENT inspection, No scleral icterus (R), No scleral icterus (L), No hearing deficit Respiratory: chest non-tender, lungs clear Cardiac/Chest: regular rate, rhythm Abdomen: normal bowel sounds, non-tender, soft, distended Skin: normal color, warm/dry Extremities: normal range of motion Neuro/Psych: no motor/sensory deficits, alert, normal mood/affect ICD10 Worksheet Patient Problems: Problems Problem Status Onset Abdominal pain Acute Vomiting Acute Diverticular disease of both small and large intestine with perforation and abscess Acute Small bowel obstruction Acute
[2017-01-01] MEDS ORDERED: chlordiazePOXIDE 25 MG CAP PO PRN (10:42)
[2017-01-01 11:03] LABS: COLOR AMBER; LEUKOCYTE ESTERASE,URINE NEGATIVE (NEGATIVE); NITRITE,URINE NEGATIVE (NEGATIVE)
[2017-01-01] MEDS: THIAMINE HCL 500 MG in NS 100 ML IV SCH (11:46)
[2017-01-01] MEDS: NS 1,000 ML IV SCH ×2 (13:48→20:55)
--- NOTE | 2017-01-01 14:59 | HOSPPROG ---
Hospitalist Progress Note Assessment/Plan: * Possible SBO -passing flatus / + BM -advance diet to clears - recheck KUB in am * Possible early cirrhosis vs. fatty liver with abnormal LFT -patient admits to heavy Etoh use -advised Etoh cessation * Obesity BMI 38 * BPH - start Flomax Subjective: Passing lots of gas. No N/V. Drinks 2-3 beers after work and sometime 8-10 beers on weekend nights. Drank even heavier than this in the past. Objective: Vital Signs Temp Pulse Resp BP Pulse Ox 36.6 C 62 17 129/72 H 94 01/01/17 12:50 01/01/17 12:50 01/01/17 12:50 01/01/17 12:50 01/01/17 12:50 Laboratory Results 01/01/17 09:12 12/31/16 01/01/17 01/02/17 05:59 05:59 05:59 Intake Total 1000 800 Output Total 380 Balance 1000 420 PT 13.8 SEC (12.0-15.0) 01/01/17 00:25 INR 1.07 (0.83-1.16) 01/01/17 00:25 CT abd reviewed - probably SBO, + BPH case d/w dr. Hernandez - she doesn't think SBO due to BM last night - Physical Exam Constitutional: no apparent distress, appears nourished, not in pain Cardiovascular: regular rate and rhythym, no murmur, rub, or gallop Respiratory: no respiratory distress, no rales or rhonchi, clear to auscultation Skin: no rashes or abrasions, no fluctuance, no induration Neurologic: AAOx3, sensation intact bilaterally Psychiatric: interacting appropriately, not anxious, not encephalopathic, thought process linear ICD10 Worksheet Patient Problems: Problems Problem Status Onset Abdominal pain Acute Vomiting Acute Diverticular disease of both small and large intestine with perforation and abscess Acute Small bowel obstruction Acute
[2017-01-01] MEDS: TAMSULOSIN HCL 0.4 MG CAP PO SCH (15:38)
[2017-01-01] MEDS: oxyCODONE IR 5 MG TAB PO PRN ×2 (18:06→20:54)
[2017-01-02] MEDS: oxyCODONE IR 5 MG TAB PO PRN ×2 (00:23→04:24)
[2017-01-02 04:31] LABS: % IMMATURE GRANULYOCYTES 0.3 % (0.0-1.1); ABSOLUTE IMMATURE GRANULOCYTES 0.01 10^3/uL (0.00-0.10); ADD DIFF? NO; ADD MORPH? NO; ADD SCAN? NO; ATYPICAL LYMPHOCYTE FLAG 0 (0-99); FRAGMENT RBC FLAG 0 (0-99); HEMATOCRIT 41.2 % (40.0-51.0); HEMOGLOBIN 13.7 g/dL (13.7-17.5); LEFT SHIFT FLG 0 (0-99); LIPEMIA HEMOLYSIS FLAG 80 (0-99); MEAN CELL HEMOGLOBIN 33.9 pg (27.9-34.1); MEAN CELL HEMOGLOBIN CONCENTR. 33.3 g/dL (32.4-36.7); MEAN PLATELET VOLUME 10.4 fL (8.7-11.7); PLATELET CLUMPS FLAG 10 (0-99); PLATELET COUNT 70 10^3/uL (150-400); RED BLOOD CELL COUNT 4.04 10^6/uL (4.40-6.38); RED CELL DISTRIBUTION WIDTH 13.4 % (11.5-15.2)
[2017-01-02 04:51] LABS: ANION GAP 7 mEq/L (8-16); CALCIUM 7.7 mg/dL (8.5-10.4); CARBON DIOXIDE 23 mEq/l (22-31); CHLORIDE 106 mEq/L (97-110); CREATININE 0.6 mg/dL (0.7-1.3); GLOMERULAR FILTRATION RATE > 60; GLUCOSE 88 mg/dL (70-100); POTASSIUM 3.4 mEq/L (3.5-5.2); SODIUM 136 mEq/L (134-144); TOTAL PROTEIN 6.4 g/dL (6.3-8.2)
[2017-01-02 04:52] LABS: ALANINE AMINOTRANSFERASE 80 IU/L (21-72); ALBUMIN 2.8 g/dL (3.5-5.0); ALKALINE PHOSPHATASE 114 IU/L (38-126); ASPARTATE AMINOTRANSFERASE 70 IU/L (17-59); BILIRUBIN-CONJUGATED 0.4 mg/dL (0.0-0.5); BILIRUBIN-UNCONJUGATED 1.6 mg/dL (0.0-1.1); MAGNESIUM 1.9 mg/dL (1.6-2.3)
[2017-01-02] MEDS: ENOXAPARIN 40 MG/0.4 ML SYR SC SCH (08:05)
[2017-01-02] MEDS: TAMSULOSIN HCL 0.4 MG CAP PO SCH (08:05)
[2017-01-02] MEDS: THIAMINE HCL 500 MG in NS 100 ML IV SCH (08:05)
[2017-01-02] MEDS: FAMOTIDINE 20 MG/NACL 50 ML IV SCH (08:05)
[2017-01-02] MEDS ORDERED: POTASSIUM CL 20 MEQ TAB PO ONE (08:39)
--- NOTE | 2017-01-02 09:44 | SOAPPROG ---
SOAP Progress Note Assessment/Plan: Assessment: HD # 3 for abdominal pain and small emesis - found to have partial SBO No abdominal pain Nausea resolved Passing flatus and having BMs. Check AXR this am. If improved can advance diet US with cirrhosis vs. fatty liver. F/u GI as outpatient Appreciate hospitalist management S: feeling much better today. passing gas and having BMs. No nausea O: In bed, comfortable, no acute distress Pupils equal and round, no scleral icterus, mucous membranes moist No increased work of breathing + bowel sounds throughout, soft, nondistended, nontender. Neuro grossly intact Mood and affect normal Objective: Vital Signs Temp Pulse Resp BP Pulse Ox 36.8 C 64 15 136/78 H 90 L 01/02/17 07:58 01/02/17 07:58 01/02/17 07:58 01/02/17 07:58 01/02/17 07:58 Laboratory Results 01/02/17 04:20 01/02/17 04:20 01/01/17 01/02/17 01/03/17 05:59 05:59 05:59 Intake Total 1000 5055 Output Total 1230 Balance 1000 3825 PT 13.8 SEC (12.0-15.0) 01/01/17 00:25 INR 1.07 (0.83-1.16) 01/01/17 00:25 ICD10 Worksheet Patient Problems: Problems Problem Status Onset Abdominal pain Acute Vomiting Acute Diverticular disease of both small and large intestine with perforation and abscess Acute Small bowel obstruction Acute
--- NOTE | 2017-01-02 12:01 | PDDCSUM ---
Discharge Summary Discharge Summary: DISCHARGE SUMMARY FOLLOW-UP ITEMS: Hepatitis panel pending at time of discharge Repeat complete metabolic profile, CBC, PT and INR at hepatology follow-up appointment DATE OF ADMISSION: 01/01/2017 DATE OF DISCHARGE: 01/02/2017 DISCHARGE DIAGNOSES: 1. Possible partial small bowel obstruction 2. Suspected cirrhosis 3. Chronic alcohol abuse 4. Suspected BPH CONSULTATIONS: General surgery PROCEDURES / IMAGING: Abdominal ultrasound demonstrating hepatic steatosis versus cirrhosis, x-ray prior to discharge demonstrating improved stool and gas pattern CHIEF COMPLAINT: Acute abdominal pain, nausea vomiting SUBJECTIVE: Patient is feeling well at time of discharge, he is tolerating an oral solid diet, he has moved his bowels PHYSICAL EXAM ON DISCHARGE: Systolic blood pressure is 110-130, heart rate 67, afebrile overnight, satting well on room air, abdomen is soft nontender nondistended, bowel sounds are present, no guarding LABS ON DISCHARGE: AST 70, ALT 80, alk phos 110, total bilirubin 2, direct bilirubin 0.4, albumin 2.8, urinalysis unremarkable, creatinine 0.6, platelets 77165, hemoglobin 13.7, white blood count 3300, potassium 3.4 HOSPITAL COURSE BY PROBLEM: 1. Possible partial small bowel obstruction. Patient presented with acute abdominal symptoms and radiographic appearance of possible small bowel obstruction. That being said, the patient had been moving his bowels and upon assessment by Dr. Hernandez, it was determined the patient did not have a surgical abdomen. That said, the patient was placed on bowel rest, was given pain medications, and received supportive care with IV fluids and antiemetics. Follow-up imaging demonstrated improvement in bowel gas pattern and patient was moving bowels at time of discharge. We will also able to safely advance his diet. Is unclear whether the patient truly is experiencing recurrent small bowel obstructions versus bowel irritation in the setting of recent food precipitant. For supportive management moving forward, the patient will continue a stool softener and Reglan as needed for nausea. 2. Suspected cirrhosis. The patient has evidence of impaired synthetic function on lab values, and ultrasound demonstrated cirrhosis versus hepatic steatosis. He is obese and is also known to abuse alcohol. We recommend complete alcohol cessation as well as outpatient hepatology follow-up appointment. He should have repeat labs at that time. His hepatitis panel still pending at time of discharge. At the time of discharge, the patient does not have any evidence of fulminant hepatic failure. 3. Suspected BPH. Patient was initiated on Flomax, prescribed at time discharge. DISCHARGE MEDICATIONS: Please see official discharge medication reconciliation sheet in chart , Flomax 0.4 mg nightly, Reglan 5-10 mg as needed, Senokot S twice daily. DISCHARGE INSTRUCTIONS: Please follow up with Dr. Molina within 1 week, [facility] thereafter. TIME SPENT: Greater than 30 minutes were spent on direct patient care, as well as discharge planning and preparation. The patient's condition improved much more rapidly than originally anticipated by admitting provider Dr. Aleida Rodgers. Dr. Hernandez and I both agree that he is currently appropriate for discharge.
[2017-01-02 13:48] VITALS: BP 131/73; PULSE 78; RESP 16; TEMP 98; O2SAT 93
[2017-01-04] MEDS ORDERED: THIAMINE HCL 100 MG TAB PO SCH (09:00)
== END 2017-01-02 14:30 | disposition home or self-care (01) | DRG 390 ==
LOC: OBSVTOIN 01-01 02:10 → F1N 01-01 03:30
PROVIDERS: ADMIT Internal Medicine; ATTEND Internal Medicine
DX: K56.60 Unspecified intestinal obstruction (principal); K70.30 Alcoholic cirrhosis of liver without ascites; K76.0 Fatty (change of) liver, not elsewhere classified; F10.10 Alcohol abuse, uncomplicated; N40.0 Benign prostatic hyperplasia without lower urinary tract symptoms; D69.6 Thrombocytopenia, unspecified; E66.9 Obesity, unspecified; K80.20 Calculus of gallbladder without cholecystitis without obstruction; Z68.38 Body mass index [BMI] 38.0-38.9, adult; Z87.19 Personal history of other diseases of the digestive system
CPT/HCPCS: 96374; G0472; J1650; J1885; J2405; J3411; Q9967

== ENCOUNTER → 2017-03-10 | Outpatient (CLI) | payer OTHER | LOC: FIMAGING 19:12 | DX: M25.562 Pain in left knee (principal); M25.462 Effusion, left knee ==

== ENCOUNTER 2017-08-14 03:43 | Inpatient (IN) | payer MEDICAID ==
[2017-08-14] MEDS ORDERED: NS 1,000 ML IV ONE (03:52)
--- NOTE | 2017-08-14 03:58 | EDPHY ---
H & P Stated Complaint: abd pain and vomiting x3 sfter eating a brown banana at 8 p.m. Time Seen by Provider: 08/14/17 03:58 HPI/ROS: HPI CHIEF COMPLAINT: Abdominal pain and vomiting HISTORY OF PRESENT ILLNESS: Patient is a 62-year-old male who presents emergency with abdominal pain. He states his abdominal pain started around 8: 00 p.m. Yesterday. He thinks is because he ate a dark or black bananas it was bruised. He had 3 episodes of vomiting no diarrhea. He complains of mid abdominal pain in the mid abdomen. He denies any chest pain or shortness of breath denies fever. Patient predominantly Bruneian-speaking only the sign language interpreter was used for history and review of systems. Patient reports he of 1 beer earlier this evening. Denies chest pain or shortness of breath. Denies urinary symptoms. Denies back pain. Past Medical History: History of small-bowel obstruction, liver cirrhosis, alcohol use, BPH, obesity Past Surgical History: Surgical history significant for diverticulitis, appendectomy Social History: Denies daily use of tobacco or drugs. Occasional alcohol use. Family History: Noncontributory ROS REVIEW OF SYSTEMS: A comprehensive 10 point review of systems is otherwise negative aside from elements mentioned in the history of present illness. Exam Constitutional triage nursing summary reviewed, vital signs reviewed, awake/ alert. Eyes normal conjunctivae and sclera, EOMI, PERRLA. HENT normal inspection, atraumatic, moist mucus membranes, no epistaxis, neck supple/ no meningismus, no raccoon eyes. Respiratory clear to auscultation bilaterally, normal breath sounds, no respiratory distress, no wheezing. Cardiovascular rate normal, regular rhythm, no murmur, no edema, distal pulses normal. Gastrointestinal mild tender palpation mid abdomen, no rebound, no guarding, normal bowel sounds, no distension, no pulsatile mass. Genitourinary no CVA tenderness. Musculoskeletal no midline vertebral tenderness, full range of motion, no calf swelling, no tenderness of extremities, no meningismus, good pulses, neurovascularly intact. Skin pink, warm, & dry, no rash, skin atraumatic. Neurologic awake, alert and oriented x 3, AAOx3, moves all 4 extremities equally, motor intact, sensory intact, CN II-XII intact, normal cerebellar, normal vision, normal speech. Psychiatric normal mood/affect. Heme/Lymph/Immune no lymphadenopathy. Differential Diagnosis: Differential diagnosis includes but is not limited to and in no particular order: Bowel obstruction, appendicitis, gallbladder disease, diverticulitis, colitis, enteritis, perforated viscus, gastritis, GERD , esophagitis, urinary tract infection, pyelonephritis, kidney stones Medical Decision Making: Plan for this patient IV established with IV fluid bolus 0.5 mg IV Dilaudid for pain control 4 mg IV Zofran for nausea, CT scan abdomen pelvis with IV contrast rule out acute up bowel obstruction diverticulitis or colitis. Re-evaluation: CT scan abdomen pelvis with IV contrast: Shows a small bowel obstruction. Mechanical obstruction with obstruction with the transition point in the right lower quadrant. Plan will be for admission to the hospital. NG tube. Will contact surgery. 0529: Spoke with Dr. Rae agrees to admit the patient for SBO. NG tube has been ordered. Patient be admitted to [facility] for SBO. Patient updated. Patient this time is hemodynamically stable no acute distress. [id number]: Dr. Rae has seen and evaluated patient. plan for admisson. Source: Patient - Personal History Current Tetanus/Diphtheria Vaccine: Yes Current Tetanus Diphtheria and Acellular Pertussis (TDAP): Yes - Medical/Surgical History Hx Asthma: No Hx Chronic Respiratory Disease: No Hx Diabetes: No Hx Cardiac Disease: No Hx Renal Disease: No Hx Cirrhosis: No Hx Alcoholism: No Hx HIV/AIDS: No Hx Splenectomy or Spleen Trauma: No Other PMH: PMHx: denies. PSHx: appy / diverticulitis. COLOSTOMY, colostomy reversal 2 wks ago - Social History Smoking Status: Never smoked Constitutional: Initial Vital Signs Temperature (C) 36.6 C 08/14/17 03:45 Heart Rate 95 08/14/17 03:45 Respiratory Rate 18 08/14/17 03:45 Blood Pressure 164/96 H 08/14/17 03:45 O2 Sat (%) 95 08/14/17 03:45 O2 Delivery Mode Room Air Allergies/Adverse Reactions: No Known Drug Allergies Allergy (Verified 08/14/17 03:55) Home Medications: Medication Instructions Recorded Ibuprofen [Motrin (*)] 200 mg PO DAILY PRN 08/14/17 Acetaminophen [Tylenol 325mg (*)] 650 mg PO Q4HRS PRN tab 08/16/17 Medical Decision Making - Data Points Laboratory Results: Laboratory Results 08/14/17 04:00 08/14/17 04:00 Medications Given: Discontinued Medications Acetaminophen (Tylenol) 650 mg PO Q4HRS PRN PRN Reason: Pain, Mild/Fever, Can Take PO Stop: 02/10/18 05:43 Last Admin: 08/16/17 08:56 Dose: 650 mg Hydromorphone HCl (Dilaudid) 0.5 mg IVP EDNOW ONE Stop: 08/14/17 04:03 Last Admin: 08/14/17 04:16 Dose: 0.5 mg Hydromorphone HCl (Dilaudid) 0.5 mg IVP EDNOW ONE Stop: 08/14/17 07:00 Last Admin: 08/14/17 07:03 Dose: 0.5 mg Hydromorphone/Sodium Chloride (Hydromorphone) 0.2 - 0.4 mg IVP Q4HRS PRN PRN Reason: Pain, Severe Unable to Take PO Stop: 08/24/17 05:43 Last Admin: 08/14/17 23:14 Dose: 0.4 mg Sodium Chloride (Ns) 1,000 mls @ 0 mls/hr IV EDNOW ONE; Wide Open PRN Reason: Protocol Stop: 08/14/17 03:53 Last Admin: 08/14/17 04:11 Dose: 1,000 mls Potassium Chloride/Dextrose/Sod Cl (D5w 1/2 Ns W/ 20 Kcl/L) 1,000 mls @ 125 mls /hr IV CONT [id number] Stop: 02/10/18 05:44 Last Admin: 08/15/17 13:04 Dose: 1,000 mls Ondansetron HCl (Zofran) 4 mg IVP EDNOW ONE Stop: 08/14/17 04:03 Last Admin: 08/14/17 04:16 Dose: 4 mg Ondansetron HCl (Zofran) 4 mg IVP Q4HRS PRN PRN Reason: Nausea/Vomiting, Can't Take PO Stop: 02/10/18 05:43 Last Admin: 08/14/17 17:40 Dose: 4 mg Ondansetron HCl (Zofran) 4 mg IVP ONCE ONE Stop: 08/14/17 06:59 Last Admin: 08/14/17 07:03 Dose: 4 mg Departure - Departure Disposition: [facility] Inpatient Acute Clinical Impression: SBO (small bowel obstruction) Condition: Good
[2017-08-14] MEDS ORDERED: HYDROmorphONE/DILAUDID 2 MG/ML INJ IVP ONE ×2 (04:02→06:59)
[2017-08-14] MEDS ORDERED: ONDANSETRON 4 MG/2 ML VIAL IVP ONE ×2 (04:02→06:58)
[2017-08-14 04:23] LABS: PLATELET COUNT 113 10^3/uL (150-400)
[2017-08-14 04:38] LABS: INR 1.02 (0.83-1.16); PROTIME(PATIENT) 13.6 SEC (12.0-15.0)
[2017-08-14] MEDS ORDERED: PROMETHAZINE HCL 25 MG/ML INJ IVP PRN (05:44)
[2017-08-14] MEDS ORDERED: ONDANSETRON 4 MG/2 ML VIAL IVP PRN (05:44)
--- NOTE | 2017-08-14 06:22 | GHP ---
[f rep st] HISTORY AND PHYSICAL DATE OF ADMISSION: 08/14/2017 CHIEF COMPLAINT: Abdominal pain. HISTORY OF PRESENT ILLNESS: Briefly, this is a 62-year-old male known to my partner, Dr. Hernandez. Patient subsequently underwent a sigmoid colectomy in May of 2014 for a colovesicular fistula secondary to chronic diverticulitis. At that point in time, he was given a diverting ileostomy, which was subsequently taken down 3 months later, in August of 2014. Patient states that he has done overall well. He was admitted for symptoms similar to this in September of 2014, as well as May of 2016, both of which resolved without any operative intervention. At any rate, he states that he was in his usual state of health. Last evening, ate dinner, later in the evening began to have some abdominal pain with distention. This progressed to the nausea and vomiting. With combination of the two, presented here complaining of the above. States that his last bowel movement was yesterday and normal. Has not passed gas since last night. Denies having any fevers or chills. He describes his abdominal pain as crampy, somewhat diffuse, and progressive and colicky. PAST MEDICAL HISTORY: Diverticulitis with colovesicular fistula. PAST SURGICAL HISTORY: Sigmoid colectomy with takedown of colovesicular fistula in May 2014, ileostomy takedown in August of 2014. MEDICATIONS: None. 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 FAMILY HISTORY: Noncontributory. ALLERGIES: None. REVIEW OF SYSTEMS: A full 10-point review was performed. PHYSICAL EXAMINATION: VITAL SIGNS: Temp 36.6, blood pressure 120/77, heart rate 83, and he is 93% on room air. CONSTITUTIONAL: He is in no apparent distress. He appears comfortable. EYES: His pupils are equal, round, and reactive to light and accommodation. He has anicteric sclerae. His extraocular movements are intact. EARS, NOSE, MOUTH, THROAT: He has dry mucous membranes. His hearing is normal. His ears appear normal. CARDIOVASCULAR: He has a regular rate and rhythm without any murmurs. RESPIRATORY: He is in no respiratory distress, rales, or rhonchi. He is otherwise clear to auscultation. GI: His abdomen is soft, minimally distended , relatively nontender. He has multiple midline and right lower quadrant scars consistent with his previous surgical history. He has no rebound tenderness or guarding. SKIN: Warm, normal color. No rashes. MUSCULOSKELETAL: Full strength. No tenderness. Normal joint range of motion. NEUROLOGIC: He is alert and oriented x3. His cranial nerves 2-12 are intact. He has no weakness , no numbness. PSYCH: He is interacting appropriately. He is not anxious or encephalopathic. LYMPH/HEME/IMMUNOLOGIC: He has no cervical, groin, or supraclavicular lymphadenopathy appreciated. LABORATORY DATA: White blood cell count normal at 6, H and H stable at 16 and 46. Coags normal with an INR of 1.02. Lactic acid normal at 1.4. Chemistry is largely unremarkable with the exception of an elevated alkaline phosphatase at 215. His glucose is also elevated at 127. Tox screen is negative for EtOH. IMAGING: Includes a plain film of his abdomen as well as an abdominal CT scan with IV contrast, the images of which were personally reviewed by me. They do show an early partial small bowel obstruction with a transition point adjacent to the patient's ileostomy staple takedown site. No free fluid, no free air. ASSESSMENT/PLAN: A 62-year-old male with multiple past surgeries with small bowel obstruction. I had an extensive conversation with the patient in the emergency department this morning. He is familiar with the process as he has been admitted twice in the past with small bowel obstructions. We will plan for nasogastric tube decompression, IV fluid hydration, and conservative management. I did tell the patient that if he failed conservative management that he will likely need operative exploration to fix his obstruction. Thank you very much. /[id number]/MODL MTDD
[2017-08-14] MEDS: D5W 1/2 NS W/ 20 KCl/L 1,000 ML IV SCH ×2 (10:31→20:03)
[2017-08-14] MEDS: HYDROmorphone HCL/NS 0.5 MG/ML SYR IVP PRN ×3 (13:06→23:14)
--- NOTE | 2017-08-14 13:14 | PDMN ---
Medical Necessity Medical necessity: Patient meets inpatient criteria per physician note and [facility] [place]st[place] (patient presents with abd pain, N/V; CT shows early partial SBO; patient with history of several SBO's that have resolved without surgery s/p previous sigmoid colectomy/diverting ileostomy with takedown later; anticipated LOS > 2 midnights for bowel rest/NG tube, IV hydration, IV pain control and antiemetics.)
[2017-08-15] MEDS: D5W 1/2 NS W/ 20 KCl/L 1,000 ML IV SCH ×2 (04:24→13:04)
--- NOTE | 2017-08-15 10:19 | SOAPPROG ---
SOAP Progress Note Assessment/Plan: Assessment/Plan: 62 year old male with history of sigmoid colectomy May 2014 for colovesicular fistula secondary to chronic diverticulitis and takedown of diverting ileostomy. Admitted with recurrent small bowel obstruction Improving with conservative management Pain controlled No nausea - IV antiemetics available Passing flatus Remove NG tube. Advance to clear liquid diet. Dispo: Remain inpatient to observe for return of bowel function. Likely home in 1-2 days. Also seen by Dr. Rae. Seen with medical habilitation training specialist S: Reports minimal abdominal pain, which he associates with being hungry. Passing small amounts of gas. Feels less distended. No nausea or vomiting. NG uncomfortable. O: Gen- appears well, in good spirits, NAD, friend at bedside HEENT- NCAT, PER, no scleral icterus, mucus membranes dry. R nare NG clamped - removed without difficulty Neuro - grossly intact Resp- no increased WOB Abd- BS present, slightly distended, soft, previous surgical incisions well healed Objective: Vital Signs Temp Pulse Resp BP Pulse Ox 37.4 C 70 18 123/80 H 95 08/15/17 07:09 08/15/17 07:09 08/15/17 07:09 08/15/17 07:09 08/15/17 07:09 08/14/17 08/15/17 08/16/17 05:59 05:59 05:59 Intake Total 1807 1250 Output Total 1325 Balance 482 1250 PT 13.6 SEC (12.0-15.0) 08/14/17 04:00 INR 1.02 (0.83-1.16) 08/14/17 04:00 ICD10 Worksheet Patient Problems: Problems Problem Status Onset Small bowel obstruction Acute Abdominal pain Acute Diverticular disease of both small and large intestine with perforation and abscess Acute Vomiting Acute
--- NOTE | 2017-08-15 12:19 | ASMTCASEMG ---
Living Arrangements What is your living Answers: Alone arrangement? Who do you live with? Type Of Residence What kind of residence do Answers: Apartment you live in? Discharge Plan Comments Coordination Status Comments Notes: Pt is a 62 y/o man admitted for a small bowl obstruction. Surgery has been consulted. CM spoke yaakov Peterson RN regarding d/c POC. Pt will most likely d/c independent when medically stable. No therapies ordered at this time. Pt is chilean speaking only. [employer] has submitted a Medicaid application on pts behalf. CM available for changes. Plan: Independent Date Signed: 08/15/2017 12:18 PM Electronically Signed By:BUTCH Vogel
--- NOTE | 2017-08-15 13:59 | SOAPPROG ---
SOAP Progress Note Assessment/Plan: Assessment/Plan: - 62yo M c pSBO, resolving - NGT removed this AM, he has been tolerating clears without nausea or issues - abdominal exam remains soft, NT, ND, with good bowel sounds - Likely ADAT tomorrow, if does well plan for DC. Needs to stay hydrated. 08/15/17 13:58 Subjective: minimal pain, passing flatus. Objective: Vital Signs Temp Pulse Resp BP Pulse Ox 37.4 C 70 18 123/80 H 95 08/15/17 07:09 08/15/17 07:09 08/15/17 07:09 08/15/17 07:09 08/15/17 07:09 08/14/17 08/15/17 08/16/17 05:59 05:59 05:59 Intake Total 1807 1250 Output Total 1325 Balance 482 1250 PT 13.6 SEC (12.0-15.0) 08/14/17 04:00 INR 1.02 (0.83-1.16) 08/14/17 04:00 ICD10 Worksheet Patient Problems: Problems Problem Status Onset Small bowel obstruction Acute Abdominal pain Acute Diverticular disease of both small and large intestine with perforation and abscess Acute Vomiting Acute
[2017-08-15] MEDS: ACETAMINOPHEN 325 MG TAB PO PRN (19:25)
[2017-08-16 08:36] VITALS: BP 125/74
[2017-08-16] MEDS: ACETAMINOPHEN 325 MG TAB PO PRN (08:56)
[2017-08-16] MEDS ORDERED: LACTULOSE 20 GM/30 ML UDCUP PO PRN (11:01)
[2017-08-16] MEDS ORDERED: POLYETHYLENE GLYCOL 3350 17 GM PKT PO PRN (11:01)
[2017-08-16] MEDS ORDERED: MAGNESIUM HYDROXIDE 30 ML UDCUP PO PRN (11:01)
[2017-08-16] MEDS ORDERED: BISACODYL 10 MG SUPP PR PRN (11:01)
--- NOTE | 2017-08-16 11:03 | SOAPPROG ---
SOAP Progress Note Assessment/Plan: Assessment/Plan: 62 year old male with history of sigmoid colectomy May 2014 for colovesicular fistula secondary to chronic diverticulitis and takedown of diverting ileostomy. Admitted with recurrent small bowel obstruction Improving with conservative management Pain controlled No nausea - IV antiemetics available Passing flatus, + small BM today Advance to regular diet Dispo: DC home later today if tolerates regular diet. Seen with medical motor vehicle parts interpreter S: No pain. No nausea. Passing gas. Had a small BM this am. Hungry. Tolerating clears well O: Gen- appears well, in good spirits, NAD, friend at bedside HEENT- NCAT, PER, no scleral icterus, mucus membranes dry. Neuro - grossly intact Resp- no increased WOB Abd- BS present, nondistended, soft, previous surgical incisions well healed. nontender Objective: Vital Signs Temp Pulse Resp BP Pulse Ox 36.6 C 50 L 18 125/74 H 92 08/16/17 08:00 08/16/17 08:00 08/16/17 08:00 08/16/17 08:00 08/16/17 08:00 08/15/17 08/16/17 08/17/17 05:59 05:59 05:59 Intake Total 1807 2837 Output Total 1325 800 Balance 482 2037 PT 13.6 SEC (12.0-15.0) 08/14/17 04:00 INR 1.02 (0.83-1.16) 08/14/17 04:00 ICD10 Worksheet Patient Problems: Problems Problem Status Onset Small bowel obstruction Acute Abdominal pain Acute Diverticular disease of both small and large intestine with perforation and abscess Acute Vomiting Acute
--- NOTE | 2017-08-16 12:02 | GDS ---
[f rep st] DISCHARGE SUMMARY ADMISSION DIAGNOSIS: Recurrent small-bowel obstruction. SECONDARY DIAGNOSIS: History of diverticulitis with colovesicular fistula requiring diverting ileostomy and takedown. REASON FOR ADMISSION: Jose is a 62-year-old man who previously had diverticulitis with a colovesicular fistula and underwent a sigmoid colectomy with diverting ileostomy. His ileostomy was taken down and he has developed several small bowel obstructions at the site of the ileostomy takedown since his original surgery in 2014. He presented to the emergency room complaining of abdominal pain, distention, nausea, and vomiting. He was admitted for bowel rest, NG tube decompression, IV fluid, and pain control. HOSPITAL COURSE: In the emergency room he had a CT scan performed, which showed a small bowel obstruction with a transition point in the right upper quadrant at the site of the ileostomy takedown site. He had an NG-tube placed and a confirmation x-ray showed good positioning of this. On hospital day number 1 his nausea and distention was significantly improved. The NG tube was clamped and removed and he was advanced to a clear liquid diet. His pain was well controlled. On hospital day number 2 he reported passing flatus and having a small bowel movement. He was hungry and tolerated a regular diet. His pain was well controlled and he was ready for discharge home. CONDITION ON DISCHARGE: He is being discharged home in stable condition. Pain is well controlled with oral pain medication. He is tolerating a regular diet and ambulating independently. DISCHARGE MEDICATIONS: Resume home medications. Please see MR for further details. He may take a stool softener or laxative as needed. Tylenol or ibuprofen over- the-counter for pain. ACTIVITY: No restrictions. DIET: As tolerated. FOLLOWUP: He may follow up with Dr. Rae or Dr. Hilliard, his previous surgeon, if needed. Otherwise, warning signs were given for recurrent small bowel obstruction. He understands to call with any worsening symptoms, questions, or concerns. /[id number]/MODL MTDD
[2017-08-16] MEDS ORDERED: SENNOSIDES/DOCUSATE SODIUM TAB PO SCH (21:00)
== END 2017-08-16 13:40 | disposition home or self-care (01) | DRG 390 ==
LOC: OBSVTOIN 05:47 → F3E 07:28
PROVIDERS: ADMIT Surgery; ATTEND Surgery
PROC: 0D9670Z Drainage of Stomach with Drainage Device, Via Natural or Artificial Opening (ICD-10-PCS; principal; 2017-08-14)
DX: K56.609 Unspecified intestinal obstruction, unspecified as to partial versus complete obstruction (principal)
CPT/HCPCS: 96374; G0480; J1170; J2405

== ENCOUNTER 2018-07-10 13:40 | Observation (INO) | payer OTHER ==
[2018-07-10 15:06] LABS: PLATELET COUNT 79 10^3/uL (150-400)
--- NOTE | 2018-07-10 15:59 | EDPHY ---
H & P Stated Complaint: abdominal pain, n/v- black vomitus Time Seen by Provider: 07/10/18 14:41 HPI/ROS: CHIEF COMPLAINT: Abdominal pain, vomiting HISTORY OF PRESENT ILLNESS: 63-year-old male with cirrhosis s/p cholecystectomy presents with abdominal pain and vomiting. Onset generalized abdominal pain this morning. The pain is waxing and waning and is currently mild. Associated with 1 episode of vomiting. The emesis was black. No nausea or vomiting now. REVIEW OF SYSTEMS: complete 10 point ROS reviewed and is negative except for the noted elements in the HPI Source: Patient - Personal History Current Tetanus/Diphtheria Vaccine: No Current Tetanus Diphtheria and Acellular Pertussis (TDAP): No - Medical/Surgical History Hx Asthma: No Hx Chronic Respiratory Disease: No Hx Diabetes: No Hx Cardiac Disease: No Hx Renal Disease: No Hx Cirrhosis: Yes Hx Alcoholism: No Hx HIV/AIDS: No Hx Splenectomy or Spleen Trauma: No Other PMH: PMHx: denies. PSHx: appy / diverticulitis. ileosTOMY with reversal in 2014 - Social History Smoking Status: Never smoked Alcohol Use: Sober Drug Use: None - Physical Exam Exam: General Appearance: Alert, pleasant Eyes: Pupils equal and round, no conjunctival pallor ENT, Mouth: Mucous membranes moist Neck: Normal inspection Respiratory: Lungs are clear to auscultation Cardiovascular: Regular rate and rhythm Gastrointestinal: Abdomen is soft and nontender, normal bowel sounds Neurological: A&O, nonfocal, normal gait Skin: Warm and dry Extremities: Nontender, no pedal edema Psychiatric: Mood and affect normal Constitutional: Initial Vital Signs Temperature (C) 36.5 C 07/10/18 13:48 Heart Rate 93 07/10/18 13:48 Respiratory Rate 18 07/10/18 13:48 Blood Pressure 137/81 H 07/10/18 13:48 O2 Sat (%) 98 07/10/18 13:48 O2 Delivery Mode Room Air Allergies/Adverse Reactions: No Known Drug Allergies Allergy (Verified 08/14/17 03:55) Home Medications: Medication Instructions Recorded Ibuprofen [Motrin (*)] 400 mg PO DAILY PRN 08/14/17 Ergocalciferol [Vitamin D2 (*)] 50,000 unit PO Q7D 07/10/18 Tamsulosin HCl [Flomax 0.4 MG (*)] 0.8 mg PO DAILY@1830 07/10/18 Medical Decision Making - Diagnostics Imaging Results: Imaging Impressions Abdomen Ultrasound 07/10/18 15:10 Impression: 1. Status post cholecystectomy. 2. Diffusely heterogeneous and hyperechoic liver, consistent with intrinsic hepatic disease. No focal mass. No ductal dilatation. 3. Otherwise limited study due to the extensive amount of bowel gas at the right upper quadrant. Findings and recommendations discussed with Dr. Kajal Ram at 4:12 p.m. on July 10, 2018. Final report concurs with initial preliminary interpretation. Imaging: Discussed imaging studies w/ bingo caller Radiologist ED Course/Re-evaluation: This patient presents with an upper GI bleed. No prior history of esophageal varices or peptic ulcer disease. Old medical record reviewed. The patient brought in the emesis, which was clearly bloody. Gastroccult is positive for blood. Hct 36, similar to prior HCT. Protonix 80 mg IV given. Was hemodynamically stable throughout his emergency department stay. No episodes of hematemesis. Abdominal exam remained benign. Consulted Dr. Hodgson, will see in ED. The hospitalist service was consulted for admission. Differential Diagnosis: Differential diagnosis includes though it is not limited to appendicitis, cholecystitis, diverticulitis, pyelonephritis, bowel perforation, small bowel obstruction. - Data Points Laboratory Results: Laboratory Results 07/10/18 14:31 07/10/18 14:31 07/10/18 07/10/18 07/10/18 16:40 14:31 14:31 WBC 4.64 10^3/uL 10^3/uL (3.80-9.50) RBC 3.91 10^6/uL L 10^6/uL (4.40-6.38) Hgb 12.0 g/dL L g/dL (13.7-17.5) Hct 36.3 % L % (40.0-51.0) MCV 92.8 fL fL (81.5-99.8) MCH 30.7 pg pg (27.9-34.1) MCHC 33.1 g/dL g/dL (32.4-36.7) RDW 16.6 % H % (11.5-15.2) Plt Count 79 10^3/uL L 10^3/uL (150-400) MPV 10.6 fL fL (8.7-11.7) Neut % (Auto) 73.2 % % (39.3-74.2) Lymph % (Auto) 15.9 % % (15.0-45.0) [place] % (Auto) 9.7 % % (4.5-13.0) Eos % (Auto) 0.6 % % (0.6-7.6) Baso % (Auto) 0.4 % % (0.3-1.7) Nucleat RBC Rel Count 0.0 % % (0.0-0.2) Absolute Neuts (auto) 3.39 10^3/uL 10^3/uL (1.70-6.50) Absolute Lymphs (auto) 0.74 10^3/uL L 10^3/uL (1.00-3.00) Absolute Monos (auto) 0.45 10^3/uL 10^3/uL (0.30-0.80) Absolute Eos (auto) 0.03 10^3/uL 10^3/uL (0.03-0.40) Absolute Basos (auto) 0.02 10^3/uL 10^3/uL (0.02-0.10) Absolute Nucleated RBC 0.00 10^3/uL 10^3/uL (0-0.01) Immature Gran % 0.2 % % (0.0-1.1) Immature Gran # 0.01 10^3/uL 10^3/uL (0.00-0.10) Sodium 139 mEq/L mEq/L (135-145) Potassium 3.5 mEq/L mEq/L (3.5-5.2) Chloride 113 mEq/L H mEq/L (97-110) Carbon Dioxide 21 mEq/l L mEq/l (22-31) Anion Gap 5 mEq/L L mEq/L (6-14) BUN 18 mg/dL mg/dL (7-23) Creatinine 0.5 mg/dL L mg/dL (0.7-1.3) Estimated GFR > 60 Glucose 95 mg/dL mg/dL (70-100) Calcium 8.5 mg/dL mg/dL (8.5-10.4) Total Bilirubin 2.3 mg/dL H mg/dL (0.1-1.4) Conjugated Bilirubin 0.7 mg/dL H mg/dL (0.0-0.5) Unconjugated Bilirubin 1.6 mg/dL H mg/dL (0.0-1.1) AST 73 IU/L H IU/L (17-59) ALT 44 IU/L IU/L (21-72) Alkaline Phosphatase 253 IU/L H IU/L (38-126) Total Protein 7.3 g/dL g/dL (6.3-8.2) Albumin 3.3 g/dL L g/dL (3.5-5.0) Lipase 158 IU/L IU/L (23-300) Gastric Occult Blood POSITIVE H (NEGATIVE) Medications Given: Octreotide Acetate 500 mcg/ (Sodium Chloride) 51 mls @ 5 mls/hr IV CONT [id number] Stop: 01/06/19 18:29 Last Admin: 07/10/18 19:46 Dose: 51 mls Ondansetron HCl (Zofran) 4 mg IVP Q4HRS PRN PRN Reason: Nausea/Vomiting, Can't Take PO Stop: 01/06/19 17:23 Last Admin: 07/10/18 19:53 Dose: 4 mg Discontinued Medications Octreotide Acetate (Octreotide Acetate) 50 mcg IVP ONCE ONE Stop: 07/10/18 18:26 Last Admin: 07/10/18 19:45 Dose: 50 mcg Pantoprazole Sodium (Protonix) 80 mg IVP EDNOW ONE Stop: 07/10/18 17:07 Last Admin: 07/10/18 18:19 Dose: 80 mg Departure - Departure Disposition: [facility] Acute Clinical Impression: Hematemesis Qualifiers: Nausea presence: with nausea Qualified Code(s): K92.0 - Hematemesis Abdominal pain Qualifiers: Abdominal location: epigastric Qualified Code(s): R10.13 - Epigastric pain Condition: Fair
[2018-07-10] MEDS ORDERED: PANTOPRAZOLE SODIUM 40 MG VIAL IVP ONE (17:06)
[2018-07-10] MEDS ORDERED: ONDANSETRON DISINTEGRATING 4 MG TAB PO PRN (17:24)
--- NOTE | 2018-07-10 18:17 | PDGENHP ---
History and Physical - Chief Complaint Hematemesis, Abdominal Pain - History of Present Illness Jose Delgado is a 63 yo M with a PMHx of Cirrhosis, SBO, alcohol abuse, BPH, chronic cholecystitis s/p cholecystectomy who presents to [facility] for abdominal pain and episode of hematemesis. Patient is Swazi speaking, certified court/medical interpreter was used to obtain history from the patient. He reports that recently he has had intermittent episodes of sharp, epigastric pain. He reports that sometimes pain is worsened after eating. This morning episode of abdominal pain occurred, patient felt nauseous and had an episode of hematemesis. He describes it as dark, red blood. He denies any hx of hematemesis. He also reports having a dark, not sure if black, bowel movement this morning. He denies any chest pain, SOB, d/c, f/c, LH, palpitations, edema. He denies having an EGD in the past. He also reports that he used to use alcohol regularly however has not used in past 3 months. History Information - Allergies/Home Medication List Allergies/Adverse Reactions: No Known Drug Allergies Allergy (Verified 07/11/18 12:10) Home Medications: Ibuprofen [Motrin (*)] 400 mg PO DAILY PRN 08/14/17 [Last Taken 07/10/18] Ergocalciferol [Vitamin D2 (*)] 50,000 unit PO Q7D 07/10/18 [Last Taken 07/03/18 ] Tamsulosin HCl [Flomax 0.4 MG (*)] 0.8 mg PO DAILY@1830 07/10/18 [Last Taken ] I have personally reviewed and updated: family history, medical history, social history, surgical history - Past Medical History liver disease Additional medical history: Cirrhosis. Multiple SBO's - Surgical History Additional surgical history: Sigmoidectomy w/ diverting ileostomy and takedown - Family History Positive for: non-pertinent Additional family history: Denies family hx of liver disease - Social History Smoking Status: Never smoked Alcohol Use: Sober Drug Use: None Review of Systems Review of Systems: ROS: 10pt was reviewed & negative except for what was stated in HPI & below Physical Exam Physical Exam: Temp Pulse Resp BP Pulse Ox 36.5 C 93 18 137/81 H 98 07/10/18 13:48 07/10/18 13:48 07/10/18 13:48 07/10/18 13:48 07/10/18 13:48 Constitutional: no apparent distress Eyes: PERRL Ears, Nose, Mouth, Throat: moist mucous membranes Cardiovascular: regular rate and rhythym Respiratory: no respiratory distress, clear to auscultation Gastrointestinal: tenderness, No guarding, No rebound, No distension Skin: warm Neurologic: AAOx3 Psychiatric: interacting appropriately Lab Data & Imaging Review 07/11/18 05:20 07/11/18 05:20 WBC 4.64 10^3/uL (3.80-9.50) 07/10/18 14:31 RBC 3.91 10^6/uL (4.40-6.38) L 07/10/18 14:31 Hgb 12.0 g/dL (13.7-17.5) L 07/10/18 14:31 Hct 36.3 % (40.0-51.0) L 07/10/18 14:31 MCV 92.8 fL (81.5-99.8) 07/10/18 14:31 MCH 30.7 pg (27.9-34.1) 07/10/18 14:31 MCHC 33.1 g/dL (32.4-36.7) 07/10/18 14:31 RDW 16.6 % (11.5-15.2) H 07/10/18 14:31 Plt Count 79 10^3/uL (150-400) L 07/10/18 14:31 MPV 10.6 fL (8.7-11.7) 07/10/18 14:31 Neut % (Auto) 73.2 % (39.3-74.2) 07/10/18 14:31 Lymph % (Auto) 15.9 % (15.0-45.0) 07/10/18 14:31 [place] % (Auto) 9.7 % (4.5-13.0) 07/10/18 14:31 Eos % (Auto) 0.6 % (0.6-7.6) 07/10/18 14:31 Baso % (Auto) 0.4 % (0.3-1.7) 07/10/18 14:31 Nucleat RBC Rel Count 0.0 % (0.0-0.2) 07/10/18 14:31 Absolute Neuts (auto) 3.39 10^3/uL (1.70-6.50) 07/10/18 14:31 Absolute Lymphs (auto) 0.74 10^3/uL (1.00-3.00) L 07/10/18 14:31 Absolute Monos (auto) 0.45 10^3/uL (0.30-0.80) 07/10/18 14:31 Absolute Eos (auto) 0.03 10^3/uL (0.03-0.40) 07/10/18 14:31 Absolute Basos (auto) 0.02 10^3/uL (0.02-0.10) 07/10/18 14:31 Absolute Nucleated RBC 0.00 10^3/uL (0-0.01) 07/10/18 14:31 Immature Gran % 0.2 % (0.0-1.1) 07/10/18 14:31 Immature Gran # 0.01 10^3/uL (0.00-0.10) 07/10/18 14:31 Sodium 139 mEq/L (135-145) 07/10/18 14:31 Potassium 3.5 mEq/L (3.5-5.2) 07/10/18 14:31 Chloride 113 mEq/L (97-110) H 07/10/18 14:31 Carbon Dioxide 21 mEq/l (22-31) L 07/10/18 14:31 Anion Gap 5 mEq/L (6-14) L 07/10/18 14:31 BUN 18 mg/dL (7-23) 07/10/18 14:31 Creatinine 0.5 mg/dL (0.7-1.3) L 07/10/18 14:31 Estimated GFR > 60 07/10/18 14:31 Glucose 95 mg/dL (70-100) 07/10/18 14:31 Calcium 8.5 mg/dL (8.5-10.4) 07/10/18 14:31 Total Bilirubin 2.3 mg/dL (0.1-1.4) H 07/10/18 14:31 Conjugated Bilirubin 0.7 mg/dL (0.0-0.5) H 07/10/18 14:31 Unconjugated Bilirubin 1.6 mg/dL (0.0-1.1) H 07/10/18 14:31 AST 73 IU/L (17-59) H 07/10/18 14:31 ALT 44 IU/L (21-72) 07/10/18 14:31 Alkaline Phosphatase 253 IU/L (38-126) H 07/10/18 14:31 Total Protein 7.3 g/dL (6.3-8.2) 07/10/18 14:31 Albumin 3.3 g/dL (3.5-5.0) L 07/10/18 14:31 Lipase 158 IU/L (23-300) 07/10/18 14:31 Gastric Occult Blood POSITIVE (NEGATIVE) H 07/10/18 16:40 Assessment & Plan Assessment: Upper GIB - Hx of Cirrhosis, denies having EGD in the past - Episode of abdominal pain with hematemesis this AM - Does take NSAIDs daily, 2 Ibuprofen qHS - Gastrooccult positive in ED - S/p 80 mg IV PPI in ED, will continue 40 mg BID IV Pantoprazole - Due to hx of cirrhosis, unknown if varices present, will start Octreotide IV - H/H close to baseline, will continue to trend, repeat 10 PM tonight, 6 AM tomorrow - Transfuse H/H <12/08 - GI consulted by ED, Dr. Ram, will f/u recommendations - NPO for now Cirrhosis - Likely 2/2 to alcohol - Elevated LFTs on admission - Management of UGIB as above - Should be referred to [facility] as outpatient Hx of Alcohol Abuse - Reports cessation 3 months ago - Hold off on CIWA, if s/s of withdrawal will initiate BPH - Continue home Flomax FEN: NPO DVT PPx: SCDs, holding in setting of possible GIB CODE: FULL Dispo: Admit to Observation
[2018-07-10] MEDS ORDERED: OCTREOTIDE ACETATE 50 MCG/ML INJ IVP ONE (18:25)
[2018-07-10] MEDS: OCTREOTIDE ACETATE 500 MCG in NS 50 ML IV SCH (19:46)
[2018-07-10] MEDS: ONDANSETRON 4 MG/2 ML VIAL IVP PRN ×2 (19:53→23:59)
[2018-07-10] MEDS: PANTOPRAZOLE SODIUM 40 MG VIAL IVP SCH (21:38)
[2018-07-10] MEDS: TAMSULOSIN HCL 0.4 MG CAP PO SCH (21:41)
[2018-07-11] MEDS: OCTREOTIDE ACETATE 500 MCG in NS 50 ML IV SCH (04:31)
[2018-07-11 05:44] LABS: PLATELET COUNT 78 10^3/uL (150-400)
[2018-07-11] MEDS ORDERED: oxyCODONE IR 5 MG TAB PO PRN (05:49)
--- NOTE | 2018-07-11 07:24 | PDCONSULT ---
[employer] Business Representative Note: [email or web address] p: f: REFERRING PHYSICIAN: I was asked to see the patient in consultation by Dr. Zachariah Whiting for a chief complaint of hematemesis HISTORY OF PRESENT ILLNESS: Mr. 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 He presented to the [facility] ER last night with complaints of abdominal pain, nausea, vomiting as well as dark bloody appearing emesis twice. He brought the emesis into the ER and this was tested positive for blood. He was in [facility] the hospital overnight on octreotide and PPI without further hematemesis. Initial Hgb 12 and dropped to 10.9 overnight. Jose has stopped drinking three months ago and endorses drinking several beers per day. This is what he has done for year. He has been using ibuprofen several times per day for umbilical pain. He was told not to use tylenol. Preceding the hematemesis he has had several week of melena. Otherwise he denies nausea, fever, weight loss, bright red blood gastrointestinal bleeding. PAST MEDICAL HISTORY: Alcohol abuse, cirrhosis, history of cholecystectomy, history of sigmoidectomy, ileostomy with ileostomy reversal PAST SURGICAL HISTORY: Cholecystectomy, sigmoidectomy, ileostomy reversal HOME MEDICATIONS: Ibuprofen when necessary INPATIENT MEDICATIONS: Octreotide drip, PPI 40 mg IV twice a day, Flomax 0.4 mg daily, otherwise when necessary Tylenol, Zofran, oxycodone ALLERGIES: NKDA FAMILY HISTORY: No family history of liver disease SOCIAL HISTORY No Tobacco use Yes Alcohol use, endorses sobriety for 3 months ROS I have performed a comprehensive review of systems, which is negative except for pertinent positives and/or pertinent negatives as noted above in the HPI Physical exam: Vitals 4 AM 37.2 Celsius 94% on room air RR 16 HR 84 BP 111/50 CONSTITUTIONAL: alert, unwell appearing, in no distress MENTAL STATUS: alert, oriented to person, place and time PSYCH: mood appropriate for affect EYES: pupils equal and reactive extra ocular eye movements intact EARS: right and left ear normal NOSE: normal and patent, no erythema, discharge or polyps MOUTH: mucous membranes moist, pharynx normal without lesions, Mallampati I HEAD: normal NECK: supple, no significant adenopatchy CHEST: clear to auscultation, no wheezes, rales or rhonchi, symmetric air entry CARDIOVASCULAR: normal rate, regular rhythm, normal S1,S2, no murmurs, rubs, clicks or gallops GASTROINTESTINAL: soft, non tender, non distended, no masses or organomegaly NEUROLOGICAL: alert, oriented, normal speech, no focal findings or movement disorder noted. No asterixis. MUSCULOSKELETAL: no joint tenderness, deformity or swelling SKIN: normal coloration and turgor, no rashes, no suspicious skin lesions CURRENT DATA: LABS: Date 07/11/2018 CBC: WBC 3.9HB 10.9 platelets 78 INR not performed BMP: Sodium 140 potassium 4.0 BUN 19 creatinine 0.6 LFT: TB 2.4 a okay 208 AST 119 ALT 67 albumin 2.7 Date 2016 Hepatitis C antibody negative Hepatitis B surface antigen negative IMAGIN07/10/2018 Ultrasound Status post cholecystectomy, heterogenous appearing cirrhotic liver ENDOSCOPY: No previous endoscopy ASSESSMENT: Mr. 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 He is likely drinking alcohol still given alcohol hepatitis appearing lab AST/ALT 2:1. Overall I suspect a peptic ulcer related to NSAID use. We will perform an upper endoscopy to evaluate for esophagitis/gastritis/duodenitis, peptic ulcer disease, Helicobacter pylori infection, esophageal or gastric varices, portal hypertension gastropathy. Despite the hematemesis and drop in hemoglobin overnight he remains hemodynamically stable. RECOMMENDATIONS: Keep patient NPO. Ensure large bore IV access. Monitor hemoglobin and hematocrit serially Resuscitation with blood transfusions as per protocol Continue octreotide drip Continue PPI 40 mg IV twice a day for now We will need assessment of H. pylori by either gastric biopsy or stool antigen Abstain from alcohol use Abstain from NSAID use Will review okay to use Tylenol < 2 grams/day for pain Ordered INR to complete meld score Will plan on urgent endoscopy today further recommendations to follow. Thank you for this consultation Sincerely, Diana Hodgson MD [facility]
[2018-07-11] MEDS: PANTOPRAZOLE SODIUM 40 MG VIAL IVP SCH (08:32)
[2018-07-11 08:52] LABS: INR 1.4 (0.83-1.16); PROTIME(PATIENT) 17.3 SEC (12.0-15.0)
--- NOTE | 2018-07-11 09:32 | HOSPPROG ---
Hospitalist Progress Note Assessment/Plan: DIAGNOSES: * Acute upper GI bleed * Suspect gastric ulcer as source of bleeding due to NSAIDs, however does have known cirrhosis so other lesions certainly possible * Post hemorrhagic anemia * Mild coagulopathy due to alcohol induced liver disease most likely * Thrombocytopenia likely due to alcohol * Known history of alcohol induced cirrhosis * History of small-bowel obstructions * Recent cholecystectomy/ had been taking Advil at home after his cholecystectomy PLANS: * Continue careful monitoring of blood pressures and hemoglobin * EGD today * Proton pump inhibitor * No anticoagulation medicines at this time due to bleeding I Reviewed today in detail with Dr. Hodgson SUBJECTIVE: Has not had any further vomiting and has not seen any blood Not lightheaded or dizzy No chest pain or shortness of breath or lightheadedness OBJECTIVE Vitals reviewed: All stable without fever Exam: alert oriented skin warm dry color ok resps not labored lungs clear BSs heart regular abd soft nondistended nontender, bowel sounds present limbs warm, no edema iv site ok Lab data: Anemia stable overnight platelets remain low at 78 Still hyperchloremic AST increased to 119, bilirubin slightly increased further to 2.4 Albumin measures low at 2.7 INR 1.4 Objective: Vital Signs Temp Pulse Resp BP Pulse Ox 37.2 C 77 16 108/63 95 07/11/18 08:23 07/11/18 08:23 07/11/18 08:23 07/11/18 08:23 07/11/18 08:23 Laboratory Results 07/11/18 05:20 07/11/18 05:20 07/10/18 07/11/18 07/12/18 06:59 06:59 06:59 Intake Total 10 Output Total 400 Balance -390 PT 17.3 SEC (12.0-15.0) H 07/11/18 08:33 INR 1.40 (0.83-1.16) H 07/11/18 08:33 - Time Spent With Patient Time Spent with Patient: greater than 35 minutes Time Spent with Patient: Greater than 35 minutes spent on this patients care, greater than 50% of time spent counseling, educating, and coordinating care regarding the above mentioned plan. 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
[2018-07-11] MEDS ORDERED: MIDAZOLAM 2 MG/2 ML VIAL ONE (12:05)
[2018-07-11] MEDS ORDERED: PROPOFOL 200 MG/20 ML VIAL ONE (12:06)
--- NOTE | 2018-07-11 12:10 | ASMTCMCOM ---
CM Note CM Note Notes: 07/11/2018 Case Management Note Discussed with MD this morning. Pt admitted for upper GI bleed. There are no case management d/c needs identified d/t pt age, family support and employment status. Pt independent with ADL's prior to admission. Pt insurance makes follow up services challenging to arrange. Case Management d/c poc: anticipating independent with follow up as directed. Case Management available if needs change. Date Signed: 07/11/2018 12:09 PM Electronically Signed By:Riddhi Wild RN
--- NOTE | 2018-07-11 12:17 | PDGENHP ---
History & Physical Chief Complaint: hematemesis History of Present Illness: 63 year old male with cirrhosis and Nsaid use presenting with hematemesis. ASA III, Mallampati 1 Relevant Physical Exam: Alert and oriented x 3, RRR, CTAB, Abdomen soft, multiple surgical scars Cardiorespiratory Assessment: as above
[2018-07-11] MEDS ORDERED: fentaNYL 100 MCG/2 ML INJ IVP PRN (12:25)
[2018-07-11] MEDS ORDERED: ALBUTEROL 3 ML DEYVIAL IH PRN (12:25)
[2018-07-11] MEDS ORDERED: ONDANSETRON 4 MG/2 ML VIAL IVP PRN (12:25)
[2018-07-11] MEDS ORDERED: NS 500 ML IV PRN (12:25)
[2018-07-11] MEDS ORDERED: DEXAMETHASONE 4 MG/ML VIAL IVP PRN (12:25)
[2018-07-11] MEDS ORDERED: NALOXONE HCL 0.4 MG/ML INJ IVP PRN (12:25)
--- NOTE | 2018-07-11 12:25 | PDANEPAE ---
ANE Past Medical History - Cardiovascular History Hx Hypertension: No Hx Arrhythmias: No Hx Chest Pain: No Hx Coronary Artery / Peripheral Vascular Disease: No Hx CHF / Valvular Disease: No Hx Palpitations: Yes Cardiovascular History Comment: rare palpitation - Pulmonary History Hx COPD: No Hx Asthma/Reactive Airway Disease: No Hx Recent Upper Respiratory Infection: No Hx Oxygen in Use at Home: No Hx Sleep Apnea: No Sleep Apnea Screening Result - Last Documented: Positive - Neurologic History Hx Cerebrovascular Accident: No Hx Seizures: No Hx Dementia: No - Endocrine History Hx Diabetes: No - Renal History Hx Renal Disorders: No - Liver History Hx Hepatic Disorders: No - Neurological & Psychiatric Hx Hx Neurological and Psychiatric Disorders: No - Cancer History Hx Cancer: No - Congenital Disorder History Hx Congenital Disorders: No - GI History Hx Gastrointestinal Disorders: Yes Gastrointestinal History Comment: diverticulitis - Chronic Pain History Chronic Pain: No - Surgical History Prior Surgeries: colostomy 05/2014. appendectomy many yrs ago ANE Review of Systems Review of Systems: ANE Patient History - Allergies Allergies/Adverse Reactions: No Known Drug Allergies Allergy (Verified 07/11/18 12:10) - Home Medications Home Medications: Ibuprofen [Motrin (*)] 400 mg PO DAILY PRN 08/14/17 [Last Taken 07/10/18] Ergocalciferol [Vitamin D2 (*)] 50,000 unit PO Q7D 07/10/18 [Last Taken 07/03/18 ] Tamsulosin HCl [Flomax 0.4 MG (*)] 0.8 mg PO DAILY@1830 07/10/18 [Last Taken ] - NPO status NPO Since - Liquids (Date): 07/10/18 NPO Since - Liquids (Time): 09:00 NPO Since - Solids (Date): 07/10/18 NPO Since - Solids (Time): 09:00 - Smoking Hx Smoking Status: Never smoked - Alcohol Use Alcohol Use: Sober - Family Anes Hx Family Hx Anesthesia Complications: none ANE Labs/Vital Signs - Labs Result Diagrams: 07/11/18 05:20 07/11/18 05:20 - Vital Signs Blood Pressure: 122/68 Heart Rate: 70 Respiratory Rate: 16 O2 Sat (%): 96 Height: 155 cm Weight: 95.028 kg ANE Physical Exam - Airway Neck exam: FROM Mallampati Score: Class 2 Mouth exam: poor dentition - Pulmonary Pulmonary: no respiratory distress, no rales or rhonchi, clear to auscultation - Cardiovascular Cardiovascular: regular rate and rhythym, no murmur, rub, or gallop - ASA Status ASA Status: IV ANE Anesthesia Plan Anesthesia Plan: GA with mask
--- NOTE | 2018-07-11 12:31 | GIREPORT ---
[facility] Surgical Services - Endoscopy Department Patient Name: Jose Delgado Procedure Date: 07/11/2018 12:13 PM Patient Type: Inpatient Attending MD/ ER Physician: Diana Hodgson MD Procedure: Upper GI endoscopy Indications: Epigastric abdominal pain, Acute post hemorrhagic anemia, Hematemesis Providers: Diana Hodgson MD Medicines: Monitored Anesthesia Care Complications: No immediate complications. Description of Procedure: After obtaining informed consent, the endoscope was passed under direct vision. Throughout the procedure, the patient's blood pressure, pulse, and oxygen saturations were monitored continuously. The Endoscope was intro duced through the mouth, and advanced to the second part of duodenum. The [facility] er GI endoscopy was accomplished without difficulty. The patient tolerated e procedure well. Findings: The proximal esophagus and mid esophagus were normal. One benign-appearing, intrinsic stenosis was found 40 cm from the incis ors. This stenosis was mildly severe and measured 2 cm (inner diameter) x le ss than one cm (in length). The stenosis was traversed. The gastroesophageal flap valve was visualized endoscopically and class ified as Hill Grade I (prominent fold, tight to endoscope). Mild portal hypertensive gastropathy was found in the entire examined stomach. Diffuse moderate inflammation characterized by erythema was found in th e gastric antrum. Biopsies were taken with a cold forceps for Helicobacte r pylori testing. Estimated blood loss was minimal. The duodenal bulb, first portion of the duodenum and second portion of the duodenum were normal. Estimated Blood Loss: Estimated blood loss was minimal. Post Op Diagnosis: - Hematemesis from mild gastritis and portal hypertension gastropathy. No esophageal or gastric varices. - Normal proximal esophagus and mid esophagus. - Benign-appearing esophageal stenosis. - Gastroesophageal flap valve classified as Hill Grade I (prominent fol d, tight to endoscope). - Portal hypertensive gastropathy. - Gastritis. Biopsied. - Normal duodenal bulb, first portion of the duodenum and second portio n of the duodenum. Recommendation: - Return patient to hospital [facility] for ongoing care. - Low sodium diet. - Continue present medications except the following: - D/C Octreotide gtt - D/C Pantoprazole IV BID - Ordered Pantoprazole 20 mg po daily taken 30 minutes before breakfast for mild gastritis duration to be determined - Stop NSAID use, recommend Tylenol < 2 grams per day. - Abstain from alcohol use. - Await results of biopsies for H pylori. - Thank you for allowing me to participate in the care of this patient. Attending Participation: I personally performed the entire procedure. Diana Hodgson MD Diana Hodgson MD 07/11/2018 12:30:59 PM This report has been signed electronicallyDiana Hodgson MD Number of Addenda: 0 Note Initiated On: 07/11/2018 12:13 PM [email or web address]
--- NOTE | 2018-07-11 12:32 | POSTANESTH ---
Post Anesthetic Evaluation Cardiovascular Status: Normal, Stable, Similar to Pre-Op Cond Respiratory Status: Normal, Stable, Similar to Pre-op Cond. Level of Consciousness/Mental Status: Moderately Sleepy Pain Control: Adequate, Prn Tx Ordered Nausea/Vomiting Control: Adequate, Prn Tx Ordered Complications Possibly Related to Anesthesia: None Noted
[2018-07-11] MEDS: ACETAMINOPHEN 325 MG TAB PO PRN (15:27)
[2018-07-11] MEDS: TAMSULOSIN HCL 0.4 MG CAP PO SCH (17:42)
[2018-07-12] MEDS: PANTOPRAZOLE SODIUM 40 MG TAB PO SCH (08:50)
[2018-07-12] MEDS: ACETAMINOPHEN 325 MG TAB PO PRN (08:51)
[2018-07-12] MEDS: ONDANSETRON 4 MG/2 ML VIAL IVP PRN (11:07)
[2018-07-12] MEDS ORDERED: PROMETHAZINE HCL 25 MG/ML INJ IVP ONE (16:19)
--- NOTE | 2018-07-12 16:21 | HOSPPROG ---
Hospitalist Progress Note Assessment/Plan: 63 yo M w UGIB 2/2 portal gastropathy 1. repeat labs 2. phenergan X 1 if nausea improved and hct stable, home today w ppi > 30 minutes see dc summary Subjective: no vomiting or melena. some nausea Objective: Vital Signs Temp Pulse Resp BP Pulse Ox 36.5 C 62 16 118/66 95 07/12/18 11:51 07/12/18 11:51 07/12/18 11:51 07/12/18 11:51 07/12/18 11:51 Laboratory Results 07/11/18 05:20 07/11/18 05:20 07/11/18 07/12/18 07/13/18 05:59 05:59 05:59 Intake Total 10 1400 Output Total 400 450 Balance -390 950 PT 17.3 SEC (12.0-15.0) H 07/11/18 08:33 INR 1.40 (0.83-1.16) H 07/11/18 08:33 - Physical Exam Constitutional: no apparent distress, appears nourished Eyes: PERRL, anicteric sclera Ears, Nose, Mouth, Throat: moist mucous membranes, hearing normal Cardiovascular: regular rate and rhythym, no murmur, rub, or gallop Respiratory: no respiratory distress, no rales or rhonchi Gastrointestinal: normoactive bowel sounds, soft, non-tender abdomen Genitourinary: No hill in urethra Skin: warm Musculoskeletal: full muscle strength ICD10 Worksheet Patient Problems: Problems Problem Status Onset Abdominal pain Acute Hematemesis Acute 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
[2018-07-12] MEDS: TAMSULOSIN HCL 0.4 MG CAP PO SCH (18:28)
--- NOTE | 2018-07-13 03:17 | GDS ---
[f rep st] DISCHARGE SUMMARY DISCHARGE DIAGNOSES: 1. Upper gastrointestinal bleed secondary to portal gastropathy. 2. Cirrhosis secondary to alcohol. 3. Benign prostatic hypertrophy. Please see admission history and physical by Dr. Zachariah Whiitng. The patient presented with an episode of hematemesis. He did not have melena. He underwent upper endoscopy showing portal hypertensive ga stropathy. His hemoglobin was 12 and has remained stable at 11 with a repeat pending. He was mildly coagulopathic with an INR of 1.4. He had a mild transaminitis. It sounds like he has decreased his alcohol to almost zero over the last few months. The patient had some nausea today but was otherwis e feeling well with stable vital signs and a pulse in the 50s and 60s. He is discharged home provide d that his repeat hematocrit today is stable. He is provided with prescriptions for Phenergan and a PPI with 1 refill. /[id number]/MODL
[2018-07-13 07:37] VITALS: BP 118/60
[2018-07-13] MEDS: PANTOPRAZOLE SODIUM 40 MG TAB PO SCH (08:28)
--- NOTE | 2018-07-13 09:20 | ASMTLACE ---
LACE Length of stay for Answers: 2 days current admission Acuity / Level of Answers: Yes Care: Did the patient have an inpatient admission? Comorbidities - select Answers: Mild liver or renal all that apply disease # of Emergency department Answers: 1-2 visits in the last 6 months Social determinants Answers: History of substance abuse (ETOH, street drugs, prescription drugs, etc.) Score: 11 Date Signed: 07/13/2018 09:19 AM Electronically Signed By:Riddhi Wild RN
--- NOTE | 2018-07-13 09:23 | ASDISCHSUM ---
Discharge Information Plan Status:Home with No Needs Medically Cleared to Leave:07/12/2018 Discharge Date:07/12/2018 CM D/C Disposition:Home, Routine, Self-Care ADT D/C Disposition: Projected Discharge Date:07/12/2018 Transportation at D/C:Family Discharge Delay Reason: Follow-Up Date:07/12/2018 Discharge Slot: Final Diagnosis: Placement Information Patient Contact Information Contact Name:MASSIMO Relationship:Son Address: City: [facility] Phone: [facility]/[employer] Player Code: Email: Financial Information Financial Class:Self-Pay Primary Plan Desc:WE CARE Primary Plan Number:99 Secondary Plan Desc: Secondary Plan Number: Assessment Information LACE LACE Length of stay for Answers: 2 days current admission Acuity / Level of Answers: Yes Care: Did the patient have an inpatient admission? Comorbidities - select Answers: Mild liver or renal all that apply disease # of Emergency department Answers: 1-2 visits in the last 6 months Social determinants Answers: History of substance abuse (ETOH, street drugs, prescription drugs, etc.) Score: 11 Date Signed: 07/13/2018 09:19 AM Electronically Signed By:Riddhi Wild RN [facility] CM Progress Note CM Note CM Note Notes: 07/11/2018 Case Management Note Discussed with this morning. Pt admitted for upper GI bleed. There are no case management d/c needs identified d/t pt age, family support and employment status. Pt independent with ADL's prior to admission. Pt insurance makes follow up services challenging to arrange. Case Management d/c poc: anticipating independent with follow up as directed. Case Management available if needs change. Date Signed: 07/11/2018 12:09 PM Electronically Signed By:Riddhi Wild RN Case Management Discharge Plan Note Case Management Discharge Discharge Order Complete? Answers: Yes Patient to Obtain Answers: via Family Medications Transportation Arranged Answers: Family/Friends Discharge Comments Notes: 07/13/2018 Case Management Note Pt to discharge independent with follow up as directed. Date Signed: 07/13/2018 09:21 AM Electronically Signed By:Riddhi Wild RN Intervention Information
--- NOTE | 2018-07-13 11:03 | GDS ---
[f rep st] DISCHARGE SUMMARY Please see yesterday's discharge summary for complete details. The patient had some nausea and vomit ing last night without blood or hematemesis. He was able to eat his whole breakfast this morning wit hout nausea. He was discharged home. His medications have already been sent to [facility]. No tably, the patient has a followup with Dr. Molina of hepatology with [facility] the [facility]. Ad vised to keep this and remain abstinent from alcohol. /[id number]/MODL
== END 2018-07-13 12:37 | disposition home or self-care (01) ==
LOC: INTOOBSV 17:18 → F3E 20:01
PROVIDERS: ADMIT Internal Medicine; ATTEND Internal Medicine
PROC: 0DB68ZX Excision of Stomach, Via Natural or Artificial Opening Endoscopic, Diagnostic (ICD-10-PCS; principal; 2018-07-10)
DX: K31.89 Other diseases of stomach and duodenum (principal); K29.71 Gastritis, unspecified, with bleeding; K70.30 Alcoholic cirrhosis of liver without ascites; D50.0 Iron deficiency anemia secondary to blood loss (chronic); D69.59 Other secondary thrombocytopenia; K22.9 Disease of esophagus, unspecified; F10.20 Alcohol dependence, uncomplicated; N40.0 Benign prostatic hyperplasia without lower urinary tract symptoms; Z79.1 Long term (current) use of non-steroidal anti-inflammatories (NSAID); Z87.19 Personal history of other diseases of the digestive system
CPT/HCPCS: 97161-GP; 97165-GO; G0378; J2250; J2354; J2405; J2550; J2704